=== PATIENT | male | born 1945 | race Caucasian/White ===

== ENCOUNTER 2019-11-28 21:58 | Emergency (ER) | payer MEDICARE ==
[~2019-11-28] VITALS: Ht 175.3 cm; Wt 88.5 kg
[~2019-11-28 21:58] MED LIST: ASPIR 8181 MG PO; LEVOTHYROXINE88 MCG PO; METFORMIN HCL500 MG PO; METOPROLOL TART25 MG PO; SIMVASTATIN40 MG PO
[2019-11-28 22:23] LABS: CLARITY,URINE TURBID (CLEAR); COLOR,URINE RED (YELLOW); LEUKOCYTE ESTERASE ,URINE 2+ (NEGATIVE); NITRITE,URINE NEGATIVE (NEGATIVE)
[2019-11-28 22:24] LABS: BACTERIA,URINE MODERATE /HPF; BILIRUBIN,URINE LARGE (NEGATIVE); KETONES,URINE 1+ (NEGATIVE); PROTEIN,URINE DIPSTICK 2+ (NEGATIVE); RBC,URINE 21-50 /HPF (0-5); URINE UROBILINOGEN 8 mg/dL (0.2 - 1)
[2019-11-28 23:00] LABS: BASOPHILS # (AUTO) 0.1 (0.0-0.1); BASOPHILS % 0.5 % (0.0-1.0); EOSINOPHILS # (AUTO) 0.4 (0.0-0.4); EOSINOPHILS % 3.4 % (0.0-6.0); HEMATOCRIT 40.6 % (38.2-49.6); HEMOGLOBIN 14.1 g/dL (14.0-18.0); LYMPHOCYTES # (AUTO) 1.3 (1.0-3.2); LYMPHOCYTES % 12.4 % (18.0-39.1); MEAN CORPUSCULAR HEMOGLOBIN 29.9 pg (28-32); MEAN CORPUSCULAR HGB CONC 34.7 g/dL (31-35); MEAN CORPUSCULAR VOLUME 86.2 fL (81-99); MONOCYTES # (AUTO) 0.9 (0.2-0.8); MONOCYTES % 8.2 % (4.4-11.3); NEUTROPHILS # (AUTO) 8.1 (2.1-6.9); NEUTROPHILS % 75.1 % (38.7-80.0); PLATELET COUNT 200 x10e3/uL (140-360); RED BLOOD COUNT 4.71 x10e6/uL (4.3-5.7); RED CELL DISTRIBUTION WIDTH 13.4 % (11.7-14.4)
[2019-11-28] MEDS ORDERED: CEFTRIAXONE SOD 1 GM/NS 50 ML 50 ML IV ONE (23:00)
[2019-11-28] MEDS ORDERED: CEFTRIAXONE SOD 1 GM VIAL ONE (23:12)
[2019-11-28 23:14] LABS: ALANINE AMINOTRANSFERASE 23 IU/L (0-55); ALBUMIN 4.2 g/dL (3.5-5.0); ALBUMIN/GLOBULIN RATIO 1.5 (0.8-2.0); ALKALINE PHOSPHATASE 69 IU/L (40-150); ANION GAP 13.7 mmol/L (8-16); BLOOD UREA NITROGEN 12 mg/dL (7-26); BUN/CREATININE RATIO 15 (6-25); CALCIUM 9.4 mg/dL (8.4-10.2); CARBON DIOXIDE 21 mmol/L (22-29); CHLORIDE 98 mmol/L (98-107); CREATININE, SERUM 0.81 mg/dL (0.72-1.25); EST GLOMERULAR FILTRATION RATE > 60 ML/MIN (60-); GLUCOSE 125 mg/dL (74-118); POTASSIUM 3.7 mmol/L (3.5-5.1); SODIUM 129 mmol/L (136-145)
[2019-11-28] MEDS ORDERED: SODIUM CHLORIDE 0.9% 1000ML 1,000 ML IV STA (23:39)
[2019-11-29] MEDS ORDERED: LIDOCAINE JELLY 2% 10ML URO-JET ONE (02:07)
--- NOTE | 2019-11-29 02:20 | NUR ---
DR HILLS PAGED DR MORGAN, AWAITING PAGE BACK.
--- NOTE | 2019-11-29 02:33 | NUR ---
350CC POST VOID RESIDUAL AFTER LOPEZ INSERTION. PATIENT TOLERATED PROCEDURE WELL. STERILE TECHNIQUE USED.
[2019-11-29] MEDS ORDERED: LIDOCAINE JELLY 2% 10ML URO-JET TOP ONE (02:45)
[2019-11-29 03:44] VITALS: BP 118/74
--- NOTE | 2019-11-29 05:39 | NUR ---
PATIENT DISCHARGED, LOPEZ BAG DRAINING TEA COLORED URINE, NO KINKS OR CLOTS NOTED TO TUBING. PATIENT HAS NO PATIENT EDUCATION QUESTIONS. INFORMED PATIENT IF LOPEZ BAG IS NOT DRAINING TO CALL DR JAY OFFICE OR COME BACK TO THIS EMERGENCY ROOM.
== END 2019-11-29 05:38 | disposition home or self-care (01) ==
LOC: ER 21:58
DX: R33.9 Retention of urine, unspecified (principal); N40.1 Benign prostatic hyperplasia with lower urinary tract symptoms; N30.01 Acute cystitis with hematuria
CPT/HCPCS: 36415; 51702; 80053; 81001; 84295; 85025; 87086; 99283; J0696; J7030; 51700

== ENCOUNTER 2019-12-24 08:18 | Emergency (ER) | payer MEDICARE ==
[~2019-12-24] VITALS: Ht 175.3 cm; Wt 88.5 kg
[2019-12-24 08:59] LABS: BASOPHILS % 0.5 % (0.0-1.0); EOSINOPHILS # (AUTO) 0.1 (0.0-0.4); EOSINOPHILS % 0.6 % (0.0-6.0); HEMATOCRIT 40.4 % (38.2-49.6); LYMPHOCYTES # (AUTO) 0.7 (1.0-3.2); MEAN CORPUSCULAR HEMOGLOBIN 29.9 pg (28-32); MEAN CORPUSCULAR HGB CONC 34.7 g/dL (31-35); MEAN CORPUSCULAR VOLUME 86.3 fL (81-99); MONOCYTES # (AUTO) 0.5 (0.2-0.8); MONOCYTES % 6.6 % (4.4-11.3); NEUTROPHILS # (AUTO) 6.5 (2.1-6.9); PLATELET COUNT 234 x10e3/uL (140-360); RED BLOOD COUNT 4.68 x10e6/uL (4.3-5.7)
[2019-12-24 09:04] LABS: COLOR,URINE RED (YELLOW)
[2019-12-24 09:05] LABS: CLARITY,URINE CLOUDY (CLEAR); LEUKOCYTE ESTERASE ,URINE LARGE (NEGATIVE); NITRITE,URINE POSITIVE (NEGATIVE); PROTEIN,URINE DIPSTICK >=300 (NEGATIVE)
[2019-12-24 09:06] LABS: BILIRUBIN,URINE LARGE (NEGATIVE); KETONES,URINE 1+ (NEGATIVE); URINE UROBILINOGEN 1 mg/dL (0.2 - 1)
[2019-12-24 09:14] LABS: RBC,URINE >50 /HPF (0-5); WBC,URINE (MAN) >50 /HPF (0-5)
[2019-12-24 09:15] LABS: INR 1.01; PROTHROMBIN TIME 13.9 seconds (11.9-14.5)
[2019-12-24 09:17] LABS: BACTERIA,URINE RARE /HPF; EPITHELIAL CELLS,URINE RARE /LPF
[2019-12-24 09:20] LABS: ANION GAP 17.5 mmol/L (8-16); BLOOD UREA NITROGEN 9 mg/dL (7-26); BUN/CREATININE RATIO 11 (6-25); CALCIUM 9.4 mg/dL (8.4-10.2); CARBON DIOXIDE 19 mmol/L (22-29); CHLORIDE 96 mmol/L (98-107); CREATININE, SERUM 0.82 mg/dL (0.72-1.25); EST GLOMERULAR FILTRATION RATE > 60 ML/MIN (60-); GLUCOSE 173 mg/dL (74-118); POTASSIUM 3.5 mmol/L (3.5-5.1); SODIUM 129 mmol/L (136-145)
[2019-12-24] MEDS ORDERED: SODIUM CHLORIDE 0.9% 250ML 250 ML ONE (10:05)
[2019-12-24] MEDS ORDERED: IOPAMIDOL 370 MG/ML 200 ML INFUS..BTL INJ ONE (10:05)
--- NOTE | 2019-12-24 11:53 | Diagnostic Imaging Report ---
EXAM: CT Abdomen and Pelvis without and WITH intravenous contrast - Hematuriaprotocol INDICATION: Losing blood COMPARISON: None. TECHNIQUE: Abdomen and pelvis were scanned utilizing a multidetector helical scanner from the lung base to the pubic symphysis with the patient in the prone position before and after administration of IV contrast. Coronal and sagittal reformations were obtained. Hematuria protocol was used. Scan was performed prior to contrast administration and during portal venous phase. Dose modulation, iterative reconstruction, and/or weight based adjustment of the mA/kV was utilized to reduce the radiation dose to as low as reasonably achievable. FINDINGS: LOWER THORAX: The lung bases demonstrate atelectasis. HEPATOBILIARY: No focal hepatic lesions. No biliary ductal dilatation. The gallbladder appears unremarkable. SPLEEN: No splenomegaly. PANCREAS: No focal masses or ductal dilatation. ADRENALS: No adrenal nodules. KIDNEYS/URETERS: The kidneys are normal in size. There is a nonobstructing 3 mm calculus in the lower pole of the left kidney. The ureters are normal in caliber and patent. PELVIC ORGANS/BLADDER: There is no bladder wall thickening. Both ureteral orifices are patent. There is no evidence of hydroureteronephrosis. The prostate is markedly enlarged and protrudes upon the bladder neck. The prostate measures approximately 7.1 x 5.2 x 7.1 cm. PERITONEUM / RETROPERITONEUM: No free air or fluid. LYMPH NODES: No lymphadenopathy. VESSELS: Unremarkable. GI TRACT: No distention or wall thickening. There is colonic diverticulosis without evidence of acute diverticulitis. BONES AND SOFT TISSUES: There are multilevel degenerative changes of the thoracolumbar spine. No acute osseous abnormalities are identified. IMPRESSION: 1. Markedly enlarged prostate which protrudes upon the bladder neck. The prostate measures approximate 7.1 x 5.2 x 7.1 cm. 2. No evidence of bladder wall thickening. 3. Nonobstructing 3 mm calculus in the lower pole of the left kidney. 4. Colonic diverticulosis without evidence of acute diverticulitis Signed by: Clifton Freedman MD on 12/24/2019 11:50 AM
--- NOTE | 2019-12-24 11:59 | NUR ---
ct just back for completion of read.
== END 2019-12-24 12:05 | disposition home or self-care (01) ==
LOC: ER 08:18
DX: R31.0 Gross hematuria (principal)
CPT/HCPCS: 36415; 74178; 80048; 81001; 85025; 85610; 99284; J7050; Q9967

== ENCOUNTER 2020-01-24 17:20 | Inpatient (IN) | payer MEDICARE ==
[~2020-01-24] VITALS: Ht 175.3 cm; Wt 85.8 kg
[~2020-01-24 17:20] MED LIST changes: -BACTRIM DS TAB1 EACH PO; -METOPROLOL TARTRATE 25 MG TAB PO SCH; -SIMVASTATIN 40 MG TAB PO SCH; -TYLENOL WITH C1 EACH PO
[2020-01-24 21:00] VITALS: BP 151/69
--- NOTE | 2020-01-24 21:06 | History and Physical ---
HISTORY OF PRESENT ILLNESS: The patient has been admitted for lower urological obstructive symptoms. See recent operative note reviewed on September 16, 2010, and more recently. History is included prior stricture. Prostatic hypertrophy. Elevated PSA in the distant past. Medical history includes hypertension and hyperlipoproteinemia. The patient was kindly seen by his urologist today and plans for further invasive assessment required. See also recommendations. MEDICATIONS: Prior to admission medications; lisinopril, Zocor. The patient is unsure of doses. We will recheck in the office. The patient also took Toprol 25 mg b.i.d., metformin 250 mg daily. PAST SURGICAL HISTORY: He denies other surgical history. ALLERGIES: DENIES KNOWN ALLERGIES. FAMILY HISTORY: Father with prostate cancer. Mother with cancer of the pancreas. The patient underwent a normal stress E[place] [address] Marinelli. REVIEW OF SYSTEMS: The patient denies headache or visual change. No upper or lower respiratory infectious symptoms. No known exposure to COVID virus. GI history review of systems is negative now. Lower obstructive symptoms. Denies claudication. No amaurosis. No angina. PHYSICAL EXAMINATION: GENERAL: The patient is alert and oriented. He is ambulating. He just voided. VITAL SIGNS: Pulse is 80 and regular, respiratory rate is 12. HEENT: Pupils round, reactive. No icterus or pallor. Throat clear. NECK: Supple. Carotids palpable. PULMONARY: Auscultation clear. CARDIAC: Sounds S1 and S2 within normal range. Soft. ABDOMEN: Soft. Bowel sounds normal. No flank or suprapubic tenderness at this time. EXTREMITIES: Free of edema, clubbing, or cyanosis. Pulses dampened and present. DTRs depressed symmetrically. Babinski is negative. Strength is good. CURRENT IMPRESSION: 1. Lower genitourinary chronic obstructive symptoms, recurrent. 2. Hypertension primary. 3. Hyperlipoproteinemia. 4. Prediabetes. PLANS: Are to follow the patient's blood pressure and blood sugar and control these. See also recommendations. Database here is pending. See also initial and followup orders. MD PREETI Zapata/MODL /[id number]
[2020-01-24] MEDS ORDERED: PHENAZOPYRIDINE HCL 100 MG TAB PO ONE (23:15)
[2020-01-24] MEDS ORDERED: MORPHINE SULFATE 2 MG/ML SYR 1ML IV PRN (23:30)
[2020-01-24] MEDS: SODIUM CHLORIDE 0.45% 1,000 ML IV SCH (23:51)
[2020-01-25] VITALS (11 sets, daily range): BP systolic 118–149; BP diastolic 57–67
[2020-01-25] MEDS: CEFTRIAXONE SOD 1 GM/NS 50 ML 50 ML IV SCH ×2 (00:54→22:32)
[2020-01-25 06:00] LABS: EOSINOPHILS # (AUTO) 0.1 (0.0-0.4); HEMATOCRIT 39.5 % (38.2-49.6); HEMOGLOBIN 13.2 g/dL (14.0-18.0); LYMPHOCYTES # (AUTO) 0.5 (1.0-3.2); MEAN CORPUSCULAR HEMOGLOBIN 29.3 pg (28-32); MEAN CORPUSCULAR HGB CONC 33.4 g/dL (31-35); MEAN CORPUSCULAR VOLUME 87.8 fL (81-99); MONOCYTES # (AUTO) 1.1 (0.2-0.8); PLATELET COUNT 177 x10e3/uL (140-360); RED CELL DISTRIBUTION WIDTH 13.5 % (11.7-14.4)
[2020-01-25] MEDS: LEVOTHYROXINE SODIUM 88 MCG TAB PO SCH (06:00)
[2020-01-25 06:47] LABS: ALANINE AMINOTRANSFERASE 19 IU/L (0-55); ALBUMIN 3.9 g/dL (3.5-5.0); ALBUMIN/GLOBULIN RATIO 1.3 (0.8-2.0); ALKALINE PHOSPHATASE 62 IU/L (40-150); ANION GAP 11.4 mmol/L (8-16); BLOOD UREA NITROGEN 11 mg/dL (7-26); BUN/CREATININE RATIO 12 (6-25); CALCIUM 9.4 mg/dL (8.4-10.2); CARBON DIOXIDE 26 mmol/L (22-29); CHLORIDE 101 mmol/L (98-107); CREATININE, SERUM 0.92 mg/dL (0.72-1.25); EST GLOMERULAR FILTRATION RATE > 60 ML/MIN (60-); GLUCOSE 125 mg/dL (74-118); POTASSIUM 4.4 mmol/L (3.5-5.1); SODIUM 134 mmol/L (136-145)
[2020-01-25 07:42] LABS: BAND NEUTROPHILS % (MANUAL) 1 %; LYMPHOCYTES % (MANUAL) 5 % (19-48); MONOCYTES % (MANUAL) 4 % (3.4-9.0); NEUTROPHILS % (MANUAL) 90 % (40-74); PLATELET ESTIMATE ADEQUATE; PLATELET MORPHOLOGY COMMENT NORMAL; RBC MORPHOLOGY COMMENT NORMAL
[2020-01-25] MEDS: LISINOPRIL 2.5 MG TAB PO SCH (09:00)
[2020-01-25] MEDS: METOPROLOL TARTRATE 25 MG TAB PO SCH ×2 (09:00→16:39)
[2020-01-25] MEDS ORDERED: B&O 60MG R/S 60 MG SUPP PR ONE (12:56)
[2020-01-25] MEDS ORDERED: IOPAMIDOL 300MG/ML 50ML INFUS..BTL IV ONE (12:56)
[2020-01-25] MEDS ORDERED: B&O 60MG R/S 60 MG SUPP PR PRN (14:30)
[2020-01-25] MEDS ORDERED: FENTANYL CITRATE/PF 100MCG/2 ML INJ ONE (16:16)
[2020-01-25] MEDS ORDERED: METFORMIN HCL 500 MG TAB PO SCH (16:30)
[2020-01-25] MEDS: ACETAMINOPHEN/CODEINE 300MG - 30MG TAB PO PRN ×2 (16:39→22:32)
[2020-01-25] MEDS: PHENAZOPYRIDINE HCL 100 MG TAB PO SCH (17:00)
[2020-01-25] MEDS ORDERED: PROPOFOL IV EMULSION 10 MG/ML 20 ML VIAL ONE (19:50)
[2020-01-25] MEDS ORDERED: LIDOCAINE HCL 2% LOCAL INJ 5 ML SDV VIAL INJ ONE (19:50)
[2020-01-25] MEDS ORDERED: SEVOFLURANE INHAL SOLN 250 ML PEN BTL ONE (19:50)
[2020-01-25] MEDS ORDERED: ONDANSETRON HCL INJ 2MG/ML 2ML 2 MG/ML VIAL ONE (19:50)
[2020-01-25] MEDS ORDERED: DEXAMETHASONE SOD PHOS INJ 4 MG/ML VIAL ONE (19:50)
[2020-01-25] MEDS ORDERED: SIMVASTATIN 20 MG TAB PO SCH (21:00)
[2020-01-25] MEDS: SODIUM CHLORIDE 0.45% 1,000 ML IV SCH (22:32)
[2020-01-26 01:37] LABS: CLARITY,URINE CLOUDY (CLEAR); COLOR,URINE AMBER (YELLOW); LEUKOCYTE ESTERASE ,URINE TRACE (NEGATIVE); NITRITE,URINE POSITIVE (NEGATIVE)
[2020-01-26 01:38] LABS: BACTERIA,URINE MANY /HPF; BILIRUBIN,URINE NEGATIVE (NEGATIVE); EPITHELIAL CELLS,URINE MANY /LPF; KETONES,URINE 1+ (NEGATIVE); PROTEIN,URINE DIPSTICK 2+ (NEGATIVE); RBC,URINE >50 /HPF (0-5); URINE UROBILINOGEN 0.2 mg/dL (0.2 - 1); WBC,URINE (MAN) >50 /HPF (0-5)
[2020-01-26 05:38] LABS: BASOPHILS % 0.1 % (0.0-1.0); EOSINOPHILS % 0.1 % (0.0-6.0); HEMATOCRIT 39.8 % (38.2-49.6); HEMOGLOBIN 13.3 g/dL (14.0-18.0); LYMPHOCYTES # (AUTO) 0.7 (1.0-3.2); LYMPHOCYTES % 6.4 % (18.0-39.1); MEAN CORPUSCULAR HEMOGLOBIN 29.6 pg (28-32); MEAN CORPUSCULAR HGB CONC 33.4 g/dL (31-35); MEAN CORPUSCULAR VOLUME 88.6 fL (81-99); MONOCYTES # (AUTO) 0.9 (0.2-0.8); MONOCYTES % 8.3 % (4.4-11.3); NEUTROPHILS # (AUTO) 9.3 (2.1-6.9); NEUTROPHILS % 84.7 % (38.7-80.0); PLATELET COUNT 167 x10e3/uL (140-360); RED BLOOD COUNT 4.49 x10e6/uL (4.3-5.7); RED CELL DISTRIBUTION WIDTH 13.2 % (11.7-14.4)
[2020-01-26 05:47] VITALS: BP 128/59
[2020-01-26 05:57] LABS: ANION GAP 13.2 mmol/L (8-16); BLOOD UREA NITROGEN 13 mg/dL (7-26); BUN/CREATININE RATIO 15 (6-25); CALCIUM 9.2 mg/dL (8.4-10.2); CARBON DIOXIDE 24 mmol/L (22-29); CHLORIDE 101 mmol/L (98-107); CREATININE, SERUM 0.86 mg/dL (0.72-1.25); EST GLOMERULAR FILTRATION RATE > 60 ML/MIN (60-); GLUCOSE 153 mg/dL (74-118); POTASSIUM 4.2 mmol/L (3.5-5.1); SODIUM 134 mmol/L (136-145)
[2020-01-26] MEDS: ACETAMINOPHEN/CODEINE 300MG - 30MG TAB PO PRN (06:00)
[2020-01-26] MEDS: LEVOTHYROXINE SODIUM 88 MCG TAB PO SCH (06:15)
[2020-01-26] MEDS: METOPROLOL TARTRATE 25 MG TAB PO SCH (08:21)
[2020-01-26 08:23] VITALS: BP 134/63
[2020-01-26 08:28] VITALS: BP 134/63
[2020-01-26] MEDS: LISINOPRIL 2.5 MG TAB PO SCH (08:49)
[2020-01-26] MEDS: PHENAZOPYRIDINE HCL 100 MG TAB PO SCH (08:49)
[2020-01-26] MEDS ORDERED: TYLENOL WITH C1 EACH PO (10:12)
[2020-01-26] MEDS ORDERED: BACTRIM DS TAB1 EACH PO (10:12)
--- NOTE | 2020-01-26 21:23 | Operative Report ---
DATE OF PROCEDURE: 01/25/2020 SURGEON: Adrian Veliz MD PREOPERATIVE DIAGNOSIS: 1. Severe distal urethral stricture. 2. Hematuria. 3. Urinary tract infections. POSTOPERATIVE DIAGNOSES: 1. Severe distal urethral stricture. 2. Hematuria. 3. Urinary tract infections. OPERATIONS PERFORMED: 1. Cystourethroscopy with calibration and dilation of severe fossa navicularis and distal urethral stricture (separate procedure performed for the diagnosis of stricture). 2. Cystourethroscopy with bilateral ureteral catheterization and retrograde ureteropyelography (separate procedure performed for the urinary tract infections and hematuria). 3. Interpretation of retrograde ureteropyelography. 4. Supervision of fluoroscopy, no radiologist presents. 5. Interpretation of cystography no radiologist present. ANESTHESIA: General. COMPLICATIONS: None. CLINICAL SUMMARY: Wes Giang is a 74-year-old man with a previous history of photoselective vaporization of the prostate performed in 2009. The patient failed to follow up for some time and returned recently with a problem with hematuria and was documented as having urinary tract infection as well. The patient was evaluated in the office. Cystoscopy in the office was attempted with the patient has severe stricture. We attempted to dilate the stricture in the office and this was not possible due to both bleeding as well as pain. The patient was sent to the emergency room for immediate admission and is brought to the operating room for the above procedures. He is aware of the risks of bleeding, infection, injury to adjacent structures, need for additional procedures, and elected to proceed. OPERATIVE PROCEDURE IN DETAIL: Informed consent was verified. Wes Giang was properly identified, taken to the operating room, placed on the cystoscopy table in supine position, and anesthesia was uneventfully begun. The patient was then carefully and gently repositioned in the dorsal lithotomy position with all pressure points well padded. His genitalia were prepared and draped in usual sterile fashion. A 22.5-Italian cystoscope sheath with visual obturator in place was atraumatically inserted into the patient's urethral meatus and just proximal to urethral meatus, there was a severe stricture. Utilization of a guidewire helped ensure appropriate channel. We placed the guidewire into the patient's urethra and fluoroscopically followed it into the patient's bladder. We then utilized female sounds to progressively dilate from 10-Italian all the way to 28-Italian. This resulted in some bleeding as expected. We then were easily able to place the 22.5-Italian cystoscope sheath with the visual obturator in place down the urethra, which was significant for bands that were wide caliber throughout the entire length of the urethra. We went through the normal sphincteric region into the patient's prostate bed, where there was obvious signs of prior transurethral resection; however, there was significant amount of regrowth with visual obstruction most pronounced at the apical region. There was also additional regrowth that was blanched with most likely phenazopyridine and this regrowth was very prominent at the right lateral proximal prostate. We entered into the patient's bladder, where panendoscopy revealed signs of chronic cystitis. There were no tumors. There were no suspicious lesions. A ureteral catheter was used to cannulate each ureter and retrograde ureteropyelograms were performed. Interpretation of retrograde ureteropyelography contrast was instilled in retrograde fashion bilaterally. There were no tumors, no stones, no diverticula. Unobstructed drainage was observed bilaterally fluoroscopically. There was severe J-hooking noted, but no hydronephrosis. The cystoscope was withdrawn. Blanton catheter was placed over the guidewire and guided into the patient's bladder. It was irrigated to and fro to ensure it worked properly. Cystography was then performed. Interpretation of cystography contrast was instilled in a retrograde fashion via the Blanton catheter. The bladder wall did exhibit some trabeculations. Blanton catheter balloon was in an excellent position within the bladder and it was difficult to machine etcher the vesicoureteral reflux in light of the prior retrograde pyelograms. There were filling defects at the base of the bladder, that were consistent with lobes of the prostate growing into the bladder. We could tell there was a transurethral resection defect, but we can also tell that there were growth into this defect consistent with the regrowth of BPH. A belladonna and opium suppository were placed revealing a larger than 50 g prostate, that is smooth and non-fluctuant without any nodules. The patient was uneventfully reversed from anesthesia and taken to recovery room in stable condition. There were no complications to the procedure. He tolerated the procedure well. Explicit postop instructions were given to the patient's . Plans will be to follow the patient up in 2 to 3 weeks to remove his Blanton catheter in the office. Further plans will be made for transurethral resection of the prostate. MD KANCHAN Stevenson/STEPHANY /[id number] cc: Avery Servin MD
--- NOTE | 2020-01-28 19:39 | Discharge Summary ---
HOSPITAL COURSE: The patient was seen as an outpatient by his urologist. He had severe symptoms of lower obstruction. He was unable to be treated with cystoscopy in the office. He was unable to be dilated in the office. He had pain and bleeding in the office. Therefore, he required inpatient assessment and treatment, which was undertaken. Database was obtained and monitored. The patient's hypertension and prediabetes were medically managed. See also operative note including cystourethroscopy, dilatation of severe fossa navicularis and distal urethral strictures, bilateral ureteral catheterization and retrograde ureteropyelography. Postoperative course was satisfactory. The patient continued with Blanton. No hematuria. On January 24, white count was elevated at 14,777. This fell to 10,960 on January 25. The patient was treated empirically with broad-spectrum cephalosporins while here. Platelet count normal. Hemoglobin 13.2 on admission, 13.3 on January 25. Urinalysis with hematuria as well as pyuria. Serum chemistries monitored and essentially normal. Peak blood sugar 209. Blood sugars otherwise were 92, 118, and 103. Urine culture was obtained on a collection January 24, and final report is no growth. See also history and physical. See also reported retrograde pyelogram when available. The patient was instructed in use of Blanton and regarding the need for close followup with his urologist. He also discharged medicine reconciliation list. He will continue transiently empirically sulfa antibiotics. He will continue antihypertensives and low-dose metformin. FINAL IMPRESSION: 1. Urethral strictures, treated as above. 2. Primary hypertension. 3. Hyperlipoproteinemia. 4. Prediabetes. MD PREETI Zapata/MODL /[id number]
== END 2020-01-26 11:10 | disposition home or self-care (01) | DRG 697 ==
LOC: MED/SURG 17:20
PROVIDERS: ADMIT Internal Medicine; ATTEND Internal Medicine
PROC: BT141ZZ Fluoroscopy of Kidneys, Ureters and Bladder using Low Osmolar Contrast (ICD-10-PCS; 2020-01-25)
PROC: 0T788ZZ Dilation of Bilateral Ureters, Via Natural or Artificial Opening Endoscopic (ICD-10-PCS; 2020-01-25)
PROC: 0T7D8ZZ Dilation of Urethra, Via Natural or Artificial Opening Endoscopic (ICD-10-PCS; principal; 2020-01-25 14:00)
DX: N35.919 Unspecified urethral stricture, male, unspecified site (principal); I10 Essential (primary) hypertension; R73.03 Prediabetes; E78.5 Hyperlipidemia, unspecified; E88.09 Other disorders of plasma-protein metabolism, not elsewhere classified; R31.9 Hematuria, unspecified
CPT/HCPCS: 36415; 74420; 80048; 80053; 81001; 82948; 83880; 84443; 85007; 85025; 85027; 85610; 85730; 87086; 96361; C1769; J0696; J1100; J2001; J2270; J2405; J3010

== ENCOUNTER → 2020-01-24 | Emergency (ER) | payer MEDICARE ==
[~2020-01-24] VITALS: Ht 175.3 cm; Wt 88.5 kg
[~2020-01-24] MED LIST changes: +BACTRIM DS TAB1 EACH PO; +METOPROLOL TARTRATE 25 MG TAB PO SCH; +SIMVASTATIN 40 MG TAB PO SCH; +TYLENOL WITH C1 EACH PO
--- OUTSIDE RECORDS SUMMARY | 2020-01-24 17:23 | XMS REPORT ---
[facility] Address Unknown Phone Unavailable Care Team Providers Care Field Operator Name Role Phone EDDIE HAMPTON, BECKI PP ELIEL RODRIGUEZ Unavailable Unavailable Payers Payer Name Policy Type Policy Number Effective Date Expiration Date [employer] [id number] [employer] [id number] Problems This patient has no known problems. Allergies, Adverse Reactions, Alerts This patient has no known allergies or adverse reactions. Medications Ordered Medication Name Filled Medication Name Start Date Stop Date Current Medication? Ordering Clinician Indication Dosage Frequency Signature (SIG) Comments Components Aspirin (Aspir 81) 81 Mg Tablet. Aspirin (Aspir 81) 81 Mg Tablet. Yes 81 Daily Levothyroxine Sodium 88 Mcg Tablet Levothyroxine Sodium 88 Mcg Tablet Yes 88 Daily Metformin Hcl 500 Mg Tablet Metformin Hcl 500 Mg Tablet Yes 250 Daily Metoprolol Tartrate 25 Mg Tablet Metoprolol Tartrate 25 Mg Tablet Yes 25 Twice A Day Simvastatin 40 Mg Tablet Simvastatin 40 Mg Tablet Yes 40 Today At 9:00PM Procedures and Interventions Procedure Date / Time Performed Performing Clinician Computed tomography of abdomen and pelvis without then with contrast 2019-12-24 00:00:00 ELIEL RODRIGUEZ Encounters Start Date/Time End Date/Time Encounter Type Admission Type Attending Clinicians Care Facility Care Department Encounter ID 2019-12-24 08:18:00 2019-12-24 12:05:00 Departed Emergency Room 1 ELIEL RODRIGUEZ [facility] [id number] 2019-11-28 21:58:00 2019-11-29 05:38:00 Departed Emergency Room [facility] [id number] Results Test Description Test Time Test Comments Text Results Atomic Results Result Comments CT ABDOMEN/PELVIS WOW 2019-12-24 11:27:00 [place] [address] Patient Name: ANNA JACKSON MR #: [id number] : 1945 Age/Sex: 74/M Req #: [id number] Adm Physician: Ordered by: ELIEL RODRIGUEZ DO Report #: [id number] Location: ER Room/Bed: Procedure: [id number] CT/CT ABDOMEN/PELVIS WOW Exam Date: 12/24/19 Exam Time: 999 REPORT STATUS: Signed EXAM: CT Abdomen and Pelvis without and WITH intraveno us contrast - Hematuriaprotocol INDICATION: Losing blood COMPARISON: None. TECHNIQUE: Abdomen and pelvis were scanned utilizing a multidetector helical scanner from the lung base to the pubic symphysis with the patient in the prone position before and after administration of IV contrast. Coronal and sagittal reformations were obtained. Hematuria protocol was used. Scan was performed prior to contrast administration and during portal venous phase. Dose modulation, iterative reconstruction, and/or weight based adjustment of the mA/kV was utilized to reduce the radiation dose to as low as reasonably achievable. FINDINGS: LOWER THORAX: The lung bases demonstrate atelectasis. HEPATOBILIARY: No focal hepatic lesions. No biliary ductal dilatation. The gallbladder appears unremarkable. SPLEEN: No splenomegaly. PANCREAS: No focal masses or ductal dilatation. ADRENALS: No adrenal nodules. KIDNEYS/URETERS: The kidneys are normal in size. There is a nonobstructing 3 mm calculus in the lower pole of the left kidney. The ureters are normal in caliber and patent. PELVIC ORGANS/BLADDER: There is no bladder wall thickening. Both ureteral orifices are patent. There is no evidence of hydroureteronephrosis. The prostate is markedly enlarged and protrudes upon the bladder neck. The prostate measures approximately 7.1 x 5.2 x 7.1 cm. PERITONEUM / RETROPERITONEUM: No free air or fluid. LYMPH NODES: No lymphadenopathy. VESSELS: Unremarkable. GI TRACT: No distention or wall thickening. There is colonic diverticulosis without evidence of acute diverticulitis. BONES AND SOFT TISSUES: There are multilevel degenerative changes of the thoracolumbar spine. No acute osseous abnormalities are identified. IMPRESSION: 1. Markedly enlarged prostate which protrudes upon the bladder neck. The prostate measures approximate 7.1 x 5.2 x 7.1 cm. 2. No evidence of bladder wall thickening. 3. Nonobstructing 3 mm calculus in the lower pole of the left kidney. 4. Colonic diverticulosis without evidence of acute diverticulitis Signed by: Clifton Tucker MD on 12/24/2019 11:50 AM Dictated By: CLIFTON TUCKER MD 1150 Transcribed By: JUSTYN on 12/24/19 1150 COPY TO: ELIEL RODRIGUEZ DO Sodium Level 2019-12-24 09:36:00 Sodium Level (test erfl=1002-5) 129 136-145 Potassium Esrjw0420-94-12 09:36:00* Test Item Value Reference Range Comments Potassium Level (test dbsj=5301-3) 3.5 3.5-5.1 Chloride Dvxxf5376-71-57 09:36:00* Test Item Value Reference Range Comments Chloride Level (test ngpy=3799-2) 96 98-107 Carbon Dioxide Cmqzk4566-29-61 09:36:00* Test Item Value Reference Range Comments Carbon Dioxide Level (test ffva=5455-1) 19 22-29 Anion Qnh6694-09-70 09:36:00* Test Item Value Reference Range Comments Anion Gap (test epia=52025-6) 17.5 8-16 Blood Urea Zfzywdet4089-87-72 09:36:00* Test Item Value Reference Range Comments Blood Urea Nitrogen (test wybn=7725-5) 9 7-26 Ydhoqytwvw6536-22-40 09:36:00* Test Item Value Reference Range Comments Creatinine (test ayzp=1775-3) 0.82 0.72-1.25 BUN/Creatinine Jzrmp2938-56-65 09:36:00* Test Item Value Reference Range Comments BUN/Creatinine Ratio (test ysma=6598-8) 11 6-25 Estimat Glomerular Filtration Grtn9411-53-51 09:36:00* Test Item Value Reference Range Comments Estimat Glomerular Filtration Rate (test nnbs=019748159) > 60 >60 Ranges were taken from the National Kidney Disease Education Program and the [facility] Foundation literature.Reference ranges:60 or greater: Igxydo22-38 ( for 3 consecutive months): Chronic kidney disease 15 or less: Kidney failure Glucose Vngkk4927-21-80 09:36:00* Test Item Value Reference Range Comments Glucose Level (test fzao=BHR8343) 173 74-118 Calcium Fkwdg5052-52-87 09:36:00* Test Item Value Reference Range Comments Calcium Level (test gcak=73282-1) 9.4 8.4-10.2 Prothrombin Zvga0667-56-02 09:18:00* Test Item Value Reference Range Comments Prothrombin Time (test afho=7212-3) 13.9 11.9-14.5 Prothromb Time International Saeaq2913-91-65 09:18:00* Test Item Value Reference Range Comments Prothromb Time International Ratio (test pbzh=4973-6) 1.01 Oral Anticoagulant Therapy INR Values:1. Low Intensity Therapy 1.5 - 2.02 . Moderate Intensity Therapy 2.0 - 3.03. High Intensity Therapy(1) 2.5 - 3. 54. High Intensity Therapy(2) 3.0 - 4.05. Panic Value INR > 5.0 Urine VYM7750-79-29 09:17:00* Test Item Value Reference Range Comments Urine WBC (test sjwl=9800-6) >50 0-5 Urine WTJ0454-26-52 09:17:00* Test Item Value Reference Range Comments Urine RBC (test wlta=59030-5) >50 0-5 Urine Ycamtwwd9101-45-17 09:17:00* Test Item Value Reference Range Comments Urine Bacteria (test ytzk=05405-5) RARE NONE URINE TOO BLOODY/CLOUDY TO OBSERVE BACTERIAL PRESENCEUrine Epithelial Cells 2019-12-24 09:17:00* Test Item Value Reference Range Comments Urine Epithelial Cells (test pcfv=83125-0) RARE NONE Urine Xikqa7512-33-14 09:07:00* Test Item Value Reference Range Comments Urine Color (test tmca=2213-8) RED YELLOW Urine Merumtm6109-52-75 09:07:00* Test Item Value Reference Range Comments Urine Clarity (test jqot=96986-6) CLOUDY CLEAR Urine Specific Gihkahl7252-38-09 09:07:00* Test Item Value Reference Range Comments Urine Specific [place] (test uyaw=0984-0) 1.015 1.010-1.025 Urine wA9041-29-39 09:07:00* Test Item Value Reference Range Comments Urine pH (test nsid=55146-6) 5.5 5-7 Urine Leukocyte Abwjszsb9022-22-89 09:07:00* Test Item Value Reference Range Comments Urine Leukocyte Esterase (test kysf=8927-9) LARGE NEGATIVE Urine Ebwjmmp2860-90-50 09:07:00* Test Item Value Reference Range Comments Urine Nitrite (test zpjt=46368-5) POSITIVE NEGATIVE Urine Rtnxqph6209-46-15 09:07:00* Test Item Value Reference Range Comments Urine Protein (test wsne=1246-8) >=300 NEGATIVE Urine Glucose (UA)2019-12-24 09:07:00* Test Item Value Reference Range Comments Urine Glucose (UA) (test jwud=8795-7) NEGATIVE NEGATIVE Urine Fdidzru3265-60-17 09:07:00* Test Item Value Reference Range Comments Urine Ketones (test nkuo=79292-0) 1+ NEGATIVE Urine Uujhxmenvhee9126-82-66 09:07:00* Test Item Value Reference Range Comments Urine Urobilinogen (test mzbl=77444-8) 1 0.2-1 Urine Ofpwkasxq6330-88-55 09:07:00* Test Item Value Reference Range Comments Urine Bilirubin (test qrbh=2703-8) LARGE NEGATIVE Urine Mudsj7893-48-34 09:07:00* Test Item Value Reference Range Comments Urine Blood (test xpua=11920-6) 3+ NEGATIVE White Blood Lmeop9751-75-34 09:03:00* Test Item Value Reference Range Comments White Blood Count (test yoss=1585-6) 7.85 4.8-10.8 Red Blood Pmhpi4523-20-66 09:03:00* Test Item Value Reference Range Comments Red Blood Count (test rvbn=229-3) 4.68 4.3-5.7 Kicpfdfgye5231-09-75 09:03:00* Test Item Value Reference Range Comments Hemoglobin (test bnif=45277-5) 14.0 14.0-18.0 Vjhchrdtmr6910-28-16 09:03:00* Test Item Value Reference Range Comments Hematocrit (test eeps=1815-6) 40.4 38.2-49.6 Mean Corpuscular Jbkxnp7348-02-59 09:03:00* Test Item Value Reference Range Comments Mean Corpuscular Volume (test gajo=088-9) 86.3 81-99 Mean Corpuscular Esipnvbrsr4742-68-01 09:03:00* Test Item Value Reference Range Comments Mean Corpuscular Hemoglobin (test wcrh=775-0) 29.9 28-32 Mean Corpuscular Hemoglobin Wlwogac1445-87-72 09:03:00* Test Item Value Reference Range Comments Mean Corpuscular Hemoglobin Concent (test uydb=600-2) 34.7 31-35 Red Cell Distribution Akpaj7626-99-42 09:03:00* Test Item Value Reference Range Comments Red Cell Distribution Width (test phec=27626-5) 14.0 11.7-14.4 Platelet Ozkbn4061-83-64 09:03:00* Test Item Value Reference Range Comments Platelet Count (test tlmk=662-5) 234 140-360 Neutrophils (%) (Auto)2019-12-24 09:03:00* Test Item Value Reference Range Comments Neutrophils (%) (Auto) (test fjdg=81204-1) 83.0 38.7-80.0 Lymphocytes (%) (Auto)2019-12-24 09:03:00* Test Item Value Reference Range Comments Lymphocytes (%) (Auto) (test yzpi=868-9) 9.0 18.0-39.1 Monocytes (%) (Auto)2019-12-24 09:03:00* Test Item Value Reference Range Comments Monocytes (%) (Auto) (test qdwz=0616-9) 6.6 4.4-11.3 Eosinophils (%) (Auto)2019-12-24 09:03:00* Test Item Value Reference Range Comments Eosinophils (%) (Auto) (test rizt=365-9) 0.6 0.0-6.0 Basophils (%) (Auto)2019-12-24 09:03:00* Test Item Value Reference Range Comments Basophils (%) (Auto) (test sbxf=184-8) 0.5 0.0-1.0 IM GRANULOCYTES %2019-12-24 09:03:00* Test Item Value Reference Range Comments IM GRANULOCYTES % (test code=IM GRANULOCYTES %) 0.3 0.0-1.0 Neutrophils # (Auto)2019-12-24 09:03:00* Test Item Value Reference Range Comments Neutrophils # (Auto) (test jffp=906-5) 6.5 2.1-6.9 Lymphocytes # (Auto)2019-12-24 09:03:00* Test Item Value Reference Range Comments Lymphocytes # (Auto) (test ejci=59722-0) 0.7 1.0-3.2 Monocytes # (Auto)2019-12-24 09:03:00* Test Item Value Reference Range Comments Monocytes # (Auto) (test nrxs=459-7) 0.5 0.2-0.8 Eosinophils # (Auto)2019-12-24 09:03:00* Test Item Value Reference Range Comments Eosinophils # (Auto) (test rgxi=569-0) 0.1 0.0-0.4 Basophils # (Auto)2019-12-24 09:03:00* Test Item Value Reference Range Comments Basophils # (Auto) (test nlfa=984-8) 0.0 0.0-0.1 Absolute Immature Granulocyte (cebm7608-72-59 09:03:00* Test Item Value Reference Range Comments Absolute Immature Granulocyte (auto (test code=Absolute Immature Granulocyte (auto) 0.02 0-0.1 Total Guhndcftm5040-70-30 23:18:00* Test Item Value Reference Range Comments Total Bilirubin (test jgog=6017-1) 0.7 0.2-1.2 Aspartate Amino Transf (AST/SGOT)2019-11-28 23:18:00* Test Item Value Reference Range Comments Aspartate Amino Transf (AST/SGOT) (test code=Aspartate Amino Transf (AST/SGOT)) 17 5-34 Alanine Aminotransferase (ALT/SGPT)2019-11-28 23:18:00* Test Item Value Reference Range Comments Alanine Aminotransferase (ALT/SGPT) (test dtlf=1693-6) 23 0-55 Total Tpseqif6267-12-76 23:18:00* Test Item Value Reference Range Comments Total Protein (test unge=1544-3) 7.0 6.5-8.1 Qulauum3229-39-45 23:18:00* Test Item Value Reference Range Comments Albumin (test sxog=3298-1) 4.2 3.5-5.0 Tiakpwam5344-09-71 23:18:00* Test Item Value Reference Range Comments Globulin (test jdxi=29062-1) 2.8 2.3-3.5 Albumin/Globulin Chtjg2427-91-61 23:18:00* Test Item Value Reference Range Comments Albumin/Globulin Ratio (test huru=7429-3) 1.5 0.8-2.0 Alkaline Pypmicpyjjh6908-36-39 23:18:00* Test Item Value Reference Range Comments Alkaline Phosphatase (test yzqy=9239-8) 69 40-150
--- NOTE | 2020-01-24 19:01 | NUR ---
Updated patient on plan, Drilling And Production Superintendent to advise when she received orders from Dr. Veliz for admission to floor.
[2020-01-24 21:40] LABS: BASOPHILS % 0.2 % (0.0-1.0); EOSINOPHILS # (AUTO) 0.1 (0.0-0.4); EOSINOPHILS % 0.8 % (0.0-6.0); HEMATOCRIT 42.7 % (38.2-49.6); HEMOGLOBIN 14.6 g/dL (14.0-18.0); LYMPHOCYTES # (AUTO) 0.9 (1.0-3.2); LYMPHOCYTES % 7.2 % (18.0-39.1); MEAN CORPUSCULAR HEMOGLOBIN 29.7 pg (28-32); MEAN CORPUSCULAR HGB CONC 34.2 g/dL (31-35); MEAN CORPUSCULAR VOLUME 86.8 fL (81-99); NEUTROPHILS # (AUTO) 10.4 (2.1-6.9); NEUTROPHILS % 83.4 % (38.7-80.0); PLATELET COUNT 203 x10e3/uL (140-360); RED BLOOD COUNT 4.92 x10e6/uL (4.3-5.7); RED CELL DISTRIBUTION WIDTH 13.5 % (11.7-14.4)
[2020-01-24 21:51] LABS: ANION GAP 12.8 mmol/L (8-16); BLOOD UREA NITROGEN 11 mg/dL (7-26); BUN/CREATININE RATIO 12 (6-25); CALCIUM 9.7 mg/dL (8.4-10.2); CARBON DIOXIDE 24 mmol/L (22-29); CHLORIDE 99 mmol/L (98-107); CREATININE, SERUM 0.92 mg/dL (0.72-1.25); EST GLOMERULAR FILTRATION RATE > 60 ML/MIN (60-); GLUCOSE 119 mg/dL (74-118); POTASSIUM 3.8 mmol/L (3.5-5.1); SODIUM 132 mmol/L (136-145)
[2020-01-24 21:58] LABS: INR 1.01; PROTHROMBIN TIME 13.9 seconds (11.9-14.5)
[2020-01-24 21:59] LABS: PARTIAL THROMBOPLASTIN TIME 40.5 seconds (23.8-35.5)
--- NOTE | 2020-01-25 00:31 | Diagnostic Imaging Report ---
EXAMINATION: CHEST 2 VIEWS INDICATION: Pre-op COMPARISON: None FINDINGS: TUBES and LINES: None. LUNGS: Lungs are well inflated. Mild patchy bibasilar opacities, likely atelectasis. There is no evidence of lobar pneumonia or pulmonary edema. PLEURA: No pleural effusion or pneumothorax. HEART AND MEDIASTINUM: The cardiomediastinal silhouette is unremarkable. There are atherosclerotic calcifications within the aorta. BONES AND SOFT TISSUES: No acute osseous lesion. Soft tissues are unremarkable. UPPER ABDOMEN: No free air under the diaphragm. IMPRESSION: No acute thoracic abnormality. Signed by: Dr. Thom Ramirez MD on 01/25/2020 12:28 AM
[2020-01-25 13:07] LABS: CLARITY,URINE HAZY (CLEAR); COLOR,URINE YELLOW (YELLOW)
[2020-01-25 13:08] LABS: KETONES,URINE 2+ (NEGATIVE); LEUKOCYTE ESTERASE ,URINE SMALL (NEGATIVE); NITRITE,URINE POSITIVE (NEGATIVE); PROTEIN,URINE DIPSTICK 2+ (NEGATIVE); URINE UROBILINOGEN 1 mg/dL (0.2 - 1)
[2020-01-25 13:09] LABS: BILIRUBIN,URINE SMALL (NEGATIVE)
[2020-01-25 13:25] LABS: WBC,URINE (MAN) >50 /HPF (0-5)
[2020-01-25 13:26] LABS: BACTERIA,URINE FEW /HPF; EPITHELIAL CELLS,URINE FEW /LPF; RBC,URINE 0-5 /HPF (0-5)
--- OUTSIDE RECORDS SUMMARY | 2020-02-13 12:29 | XMS REPORT ---
Author Author [facility] t Organization [facility] Address [address] [place] [address] Phone Unavailable Care Team Providers Care Rock Duster Name Role Phone EDDIE HAMPTON, BECKI PCP DARYN HILLS Attphys Unavailable RODRIGUEZ, ELIEL Attphys Unavailable Payers Payer Name Policy Type Policy Number Effective Date Expiration Date Shaneka townsend [employer] [id number] [facility] [employer] [id number] [facility] Problems This patient has no known problems. Allergies, Adverse Reactions, Alerts This patient has no known allergies or adverse reactions. Medications Ordered Medication Name Filled Medication Name Start Date Stop Da te Current Medication? Ordering Clinician Indication Dosage Frequency Signature (SIG) Comments Components Source Aspirin (Aspir 81) 81 Mg Tablet. Aspirin (Aspir 81) 81 Mg Tablet. Yes 81 Daily [facility] Levothyroxine Sodium 88 Mcg Tablet Levothyroxine Sodium 88 Mcg Tablet Yes 88 Daily [facility] Metformin Hcl 500 Mg Tablet Metformin Hcl 500 Mg Tablet Yes 250 Daily [facility] Metoprolol Tartrate 25 Mg Tablet Metoprolol Tartrate 25 Mg Tablet Yes 25 Twice A Day [facility] Simvastatin 40 Mg Tablet Simvastatin 40 Mg Tablet Yes 40 Today At 9:00PM [facility] Procedures Procedure Date / Time Performed Performing Clinician Sour e Computed tomography of abdomen and pelvis without then with contrast 2019-12-24 00:00:00 ELIEL RODRIGUEZ [facility] Encounters Start Date/Time End Date/Time En[facility] ID Source 2019-12-24 08:18:00 2019-12-24 12:05:00 Departed Emergency Room 1 ELIEL RODRIGUEZ [facility] [id number] [facility] 2019-11-28 21:58:00 2019-11-29 05:38:00 Departed Emergency Room [facility] [id number] [facility] Results Test Description Test Time Test Comments Results Result Comments Source CHEST 2 VIEWS 2020-01-25 00:24:00 [place] [address] Patient Name: ANNA JACKSON MR #: [id number] : 1945 Age/Sex: 74/M Req #: [id number] Adm Physician: Ordered by: KISHA SANCHEZ MD Report #: [id number] Location: ER Room/Bed: Procedure: [id number] DX/CHEST 2 VIEWS Exam Date: 01/25/20 Exam Time: 0500 REPORT STATUS: Signed EXAMINATION: CHEST 2 VIEWS INDICATION: Pre-op COMPARISON: None FINDINGS: TUBES and LINES: None. LUNGS: Lungs are well inflated. Mild patchy bibasilar opacities, likely atelectasis. There is no evidence of lobar pneumonia or pulmonary edema. PLEURA: No pleural effusion or pneumothorax. HEART AND MEDIASTINUM: The cardiomediastinal silhouette is unremarkable. There are atherosclerotic calcifications within the aorta. BONES AND SOFT TISSUES: No acute osseous lesion. Soft tissues are unremarkable. UPPER ABDOMEN: No free air under the diaphragm. IMPRESSION: No acute thoracic abnormality. Signed by: Dr. Sachin Lemus MD on 01/25/2020 12:28 AM Dictated By: SACHIN LEMUS MD Transcribed By: JUSTYN on 01/25/2027 COPY TO: KISHA SANCHEZ MD CT ABDOMEN/PELVIS WOW 2019-12-24 11:27:00 [place] [address] Patient Name: ANNA JACKSON MR #: [id number] : 1945 Age/Sex: 74/M Req #: [id number] Adm Physician: Ordered by: ELIEL RODRIGUEZ DO Report #: [id number] Location: ER Room/Bed: Procedure: [id number] CT/CT ABDOMEN/PELVIS WOW Exam Date: 12/24/19 Exam Time: 1000 REPORT STATUS: Signed EXAM: CT Abdomen and Pelvis without and WITH intravenous contrast - Hematuriaprotocol INDICATION: Losing blood COMPARISON: [...] the mA/kV was utilized to reduce the ra diation dose to as low as reasonably achievable. [...] ELIEL RODRIGUEZ DO Sodium Level 2019-12-24 09:36:00 Test Item Sodium Level (test code = 2951-2) 129 136-145 [facility] Xzntk9264-18-16 09:36:00* Test Item Value Reference Range Interpretation Comments Potassium Level (test code = 2823-3) 3.5 3.5-5.1 [facility] CenterChloride Dfojg9205-77-57 09:36:00* Test Item Value Reference Range Interpretation Comments Chloride Level (test code = 2075-0) 96 98-107 [facility] CenterCarbon Dioxide Gqqzy4193-27-51 09:36:00* Test Item Value Reference Range Interpretation Comments Carbon Dioxide Level (test code = 2028-9) 19 22-29 [facility] CenterAnion Zba4369-67-09 09:36:00* Test Item Value Reference Range Interpretation Comments Anion Gap (test code = 36761-0) 17.5 8-16 [facility] CenterBlood Urea Gzdkzspe5633-95-02 09:36:00* Test Item Value Reference Range Interpretation Comments Blood Urea Nitrogen (test code = 3094-0) 9 7-26 [facility] CenterCreatinine2020-03-23 09:36:00* Test Item Value Reference Range Interpretation Comments Creatinine (test code = 2160-0) 0.82 0.72-1.25 [facility] CenterBUN/Creatinine Gxgcc8992-97-84 09:36:00* Test Item Value Reference Range Interpretation Comments BUN/Creatinine Ratio (test code = 3097-3) 11 6-25 [facility] CenterEstimat Glomerular Filtration Rate 2019-12-24 09:36:00* Test Item Value Reference Range Interpretation Comments Estimat Glomerular Filtration Rate (test code = 658287159) > 60 >60 Ranges were taken from the National Kidney Disease Education Program and the [facility] literature.Reference ranges:60 or greater: Hwhxei05-34 ( for 3 consecutive months): Chronic kidney disease 15 or less: Kidney failureCovenant Medical CenterGlucose Dyyim5995-14-70 09:36:00* Test Item Value Reference Range Interpretation Comments Glucose Level (test code = LUY6096) 173 74-118 [facility] CenterCalcium Ofzwk5165-22-34 09:36:00* Test Item Value Reference Range Interpretation Comments Calcium Level (test code = 60869-2) 9.4 8.4-10.2 [facility] CenterProthrombin Wrww1512-69-14 09:18:00* Test Item Value Reference Range Interpretation Comments Prothrombin Time (test code = 5902-2) 13.9 11.9-14.5 [facility] CenterProthromb Time International Ratio 2019-12-24 09:18:00* Test Item Value Reference Range Interpretation Comments Prothromb Time International Ratio (test code = 6301-6) 1.01 Oral Anticoagulant Therapy INR Values:1. Low Intensity Therapy 1.5 - 2.02 . Moderate Intensity Therapy 2.0 - 3.03. High Intensity Therapy(1) 2.5 - 3. 54. High Intensity Therapy(2) 3.0 - 4.05. Panic Value INR > 5.0 [facility] CenterUrine [id number] 09:17:00* Test Item Value Reference Range Interpretation Comments Urine WBC (test code = 5821-4) >50 0-5 [facility] CenterU[facility] EBD5881-82-53 09:17:00* Test Item Value Reference Range Interpretation Comments Urine RBC (test code = 53117-9) >50 0-5 [facility] CenterUrine Haniehip6715-28-16 09:17:00* Test Item Value Reference Range Interpretation Comments Urine Bacteria (test code = 64567-9) RARE NONE URINE TOO BLOODY/CLOUDY TO OBSERVE BACTERIAL PRESENCECovenant Medical CenterUrine Epithelial Dgbtn7873-28-24 09:17:00* Test Item Value Reference Range Interpretation Comments Urine Epithelial Cells (test code = 47538-4) RARE NONE [facility] CenterUrine Mburv3888-58-43 09:07:00* Test Item Value Reference Range Interpretation Comments Urine Color (test code = 5778-6) RED YELLOW [facility] CenterUrine Nnqrfiw9883-13-75 09:07:00* Test Item Value Reference Range Interpretation Comments Urine Clarity (test code = 03066-1) CLOUDY CLEAR [facility] CenterUrine Specific Jjkwfmr0745-00-96 09:07:00 * Test Item Value Reference Range Interpretation Comments Urine Specific [place] (test code = 5811-5) 1.015 1.010-1.02 5 [facility] CenterUrine rS2469-08-19 09:07:00* Test Item Value Reference Range Interpretation Comments Urine pH (test code = 07288-8) 5.5 5-7 [facility] CenterU[facility] Leukocyte Igfcebwr7505-01-82 09:07:00* Test Item Value Reference Range Interpretation Comments Urine Leukocyte Esterase (test code = 5799-2) LARGE NEGATIVE [facility] CenterUrine Mljqghu7746-29-07 09:07:00* Test Item Value Reference Range Interpretation Comments Urine Nitrite (test code = 91805-4) POSITIVE NEGATIVE [facility] CenterUrine Ndzkjwn1396-23-35 09:07:00* Test Item Value Reference Range Interpretation Comments Urine Protein (test code = 5804-0) >=300 NEGATIVE [facility] CenterUrine Glucose (UA)2019-12-24 09:07:00* Test Item Value Reference Range Interpretation Comments Urine Glucose (UA) (test code = 2349-9) NEGATIVE NEGATIVE [facility] CenterU[facility] Nyaeuyd9250-02-61 09:07:00* Test Item Value Reference Range Interpretation Comments Urine Ketones (test code = 05200-1) 1+ NEGATIVE [facility] CenterU[facility] Qrnjvbimbsoc9185-76-95 09:07:00* Test Item Value Reference Range Interpretation Comments Urine Urobilinogen (test code = 62417-2) 1 0.2-1 [facility] CenterUrine Icakmmihs8606-98-23 09:07:00* Test Item Value Reference Range Interpretation Comments Urine Bilirubin (test code = 1978-6) LARGE NEGATIVE [facility] CenterUrine Vaice3208-32-54 09:07:00* Test Item Value Reference Range Interpretation Comments Urine Blood (test code = 24697-8) 3+ NEGATIVE [facility] CenterWhite Blood Dgitd6923-33-84 09:03:00* Test Item Value Reference Range Interpretation Comments White Blood Count (test code = 6690-2) 7.85 4.8-10.8 [facility] CenterRed Blood Kefiv3949-96-31 09:03:00* Test Item Value Reference Range Interpretation Comments Red Blood Count (test code = 789-8) 4.68 4.3-5.7 [facility] CenterHemoglobin2020-03-23 09:03:00* Test Item Value Reference Range Interpretation Comments Hemoglobin (test code = 86504-7) 14.0 14.0-18.0 [facility] CenterHematocrit2020-03-23 09:03:00* Test Item Value Reference Range Interpretation Comments Hematocrit (test code = 4544-3) 40.4 38.2-49.6 [facility] CenterMean Corpuscular Guivcs2612-87-27 09:03:00* Test Item Value Reference Range Interpretation Comments Mean Corpuscular Volume (test code = 787-2) 86.3 81-99 [facility] CenterMean Corpuscular Kotergyqxb0055-66-85 09:03:00* Test Item Value Reference Range Interpretation Comments Mean Corpuscular Hemoglobin (test code = 785-6) 29.9 28-32 [facility] CenterMean Corpuscular Hemoglobin Concent 2019-12-24 09:03:00* Test Item Value Reference Range Interpretation Comments Mean Corpuscular Hemoglobin Concent (test code = 786-4) 34.7 31-35 [facility] CenterRed Cell Distribution Xmsrz8220-59-13 09:03:00* Test Item Value Reference Range Interpretation Comments Red Cell Distribution Width (test code = 86868-2) 14.0 11.7 -14.4 [facility] CenterPlatelet Uzswc8604-94-18 09:03:00* Test Item Value Reference Range Interpretation Comments Platelet Count (test code = 777-3) 234 140-360 [facility] CenterNeutrophils (%) (Auto)2019-12-24 09:03:00 * Test Item Value Reference Range Interpretation Comments Neutrophils (%) (Auto) (test code = 02538-9) 83.0 38.7-80.0 [facility] CenterLymphocytes (%) (Auto)2019-12-24 09:03:00 * Test Item Value Reference Range Interpretation Comments Lymphocytes (%) (Auto) (test code = 736-9) 9.0 18.0-39.1 [facility] CenterMonocytes (%) (Auto)2019-12-24 09:03:00* Test Item Value Reference Range Interpretation Comments Monocytes (%) (Auto) (test code = 5905-5) 6.6 4.4-11.3 [facility] CenterEosinophils (%) (Auto)2019-12-24 09:03:00 * Test Item Value Reference Range Interpretation Comments Eosinophils (%) (Auto) (test code = 713-8) 0.6 0.0-6.0 [facility] CenterBasophils (%) (Auto)2019-12-24 09:03:00* Test Item Value Reference Range Interpretation Comments Basophils (%) (Auto) (test code = 706-2) 0.5 0.0-1.0 [facility] CenterIM GRANULOCYTES %2019-12-24 09:03:00* Test Item Value Reference Range Interpretation Comments IM GRANULOCYTES % (test code = IM GRANULOCYTES %) 0.3 0.0- 1.0 [facility] CenterNeutrophils # (Auto)2019-12-24 09:03:00* Test Item Value Reference Range Interpretation Comments Neutrophils # (Auto) (test code = 751-8) 6.5 2.1-6.9 [facility] CenterLymphocytes # (Auto)2019-12-24 09:03:00* Test Item Value Reference Range Interpretation Comments Lymphocytes # (Auto) (test code = 43774-0) 0.7 1.0-3.2 [facility] CenterMonocytes # (Auto)2019-12-24 09:03:00* Test Item Value Reference Range Interpretation Comments Monocytes # (Auto) (test code = 742-7) 0.5 0.2-0.8 [facility] CenterEosinophils # (Auto)2019-12-24 09:03:00* Test Item Value Reference Range Interpretation Comments Eosinophils # (Auto) (test code = 711-2) 0.1 0.0-0.4 [facility] CenterBasophils # (Auto)2019-12-24 09:03:00* Test Item Value Reference Range Interpretation Comments Basophils # (Auto) (test code = 704-7) 0.0 0.0-0.1 [facility] CenterAbsolute Immature Granulocyte (auto 2019-12-24 09:03:00* Test Item Value Reference Range Interpretation Comments Absolute Immature Granulocyte (auto (dennis t code = Absolute Immature Granulocyte (auto) 0.02 0-0.1 [facility] CenterTotal Nvjaowoze3248-03-65 23:18:00* Test Item Value Reference Range Interpretation Comments Total Bilirubin (test code = 1975-2) 0.7 0.2-1.2 [facility] CenterAspartate Amino Transf (AST/SGOT) 2019-11-28 23:18:00* Test Item Value Reference Range Interpretation Comments Aspartate Amino Transf (AST/SGOT) (test code = Aspartate Amino Transf (AST/SGOT)) 17 5-34 [facility] CenterAlanine Aminotransferase (ALT/SGPT) 2019-11-28 23:18:00* Test Item Value Reference Range Interpretation Comments Alanine Aminotransferase (ALT/SGPT) (test code = 1742-6) 23 0-55 [facility] Campustal Sqgxpgb0135-88-03 23:18:00* Test Item Value Reference Range Interpretation Comments Total Protein (test code = 2885-2) 7.0 6.5-8.1 [facility] CenterAlbumin2020-02-26 23:18:00* Test Item Value Reference Range Interpretation Comments Albumin (test code = 1751-7) 4.2 3.5-5.0 [facility] CenterGlobulin2020-02-26 23:18:00* Test Item Value Reference Range Interpretation Comments Globulin (test code = 86929-7) 2.8 2.3-3.5 [facility] CenterAlbumin/Globulin Xtqjd4113-47-59 23:18:00 * Test Item Value Reference Range Interpretation Comments Albumin/Globulin Ratio (test code = 1759-0) 1.5 0.8-2.0 [facility] CenterAlkaline Fquothwyvbr7289-03-26 23:18:00* Test Item Value Reference Range Interpretation Comments Alkaline Phosphatase (test code = 6768-6) 69 40-150 [facility]
== END | disposition left against medical advice (07) ==
LOC: EDSTATUS 08:17 → ER 17:20
DX: N35.919 Unspecified urethral stricture, male, unspecified site (principal)
CPT/HCPCS: 36415; 71046; 80048; 81001; 84443; 85025; 85610; 85730; 87086

== ENCOUNTER → 2021-03-26 | Outpatient (CLI) | payer MEDICARE ==
[~2021-03-26] MED LIST changes: +BACTRIM DS TAB1 EACH PO; +REGADENOSON 0.4 MG/5 ML SYR IV ONE; +TYLENOL WITH C1 EACH PO
== END ==
LOC: NM 08:31
PROVIDERS: ATTEND Internal Medicine Cardiovascular Disease
DX: I25.10 Atherosclerotic heart disease of native coronary artery without angina pectoris (principal); R07.9 Chest pain, unspecified
CPT/HCPCS: 78452; 93017; 93306; A9502; J2785

== ENCOUNTER → 2021-04-09 | Day surgery (SDC) | payer MEDICARE ==
[2021-04-07 11:52] LABS: BASOPHILS # (AUTO) 0.1 (0.0-0.1); BASOPHILS % 0.6 % (0.0-1.0); EOSINOPHILS # (AUTO) 0.5 (0.0-0.4); EOSINOPHILS % 6.6 % (0.0-6.0); HEMATOCRIT 42.5 % (38.2-49.6); HEMOGLOBIN 14.5 g/dL (14.0-18.0); LYMPHOCYTES # (AUTO) 1.2 (1.0-3.2); LYMPHOCYTES % 14.4 % (18.0-39.1); MEAN CORPUSCULAR HEMOGLOBIN 30.2 pg (28-32); MEAN CORPUSCULAR HGB CONC 34.1 g/dL (31-35); MEAN CORPUSCULAR VOLUME 88.5 fL (81-99); MONOCYTES # (AUTO) 0.7 (0.2-0.8); MONOCYTES % 8.8 % (4.4-11.3); NEUTROPHILS # (AUTO) 5.7 (2.1-6.9); NEUTROPHILS % 69.2 % (38.7-80.0); PLATELET COUNT 129 x10e3/uL (140-360); RED CELL DISTRIBUTION WIDTH 13.8 % (11.7-14.4)
[2021-04-07 12:05] LABS: INR 0.94; PROTHROMBIN TIME 13.1 seconds (11.9-14.5)
[2021-04-07 12:14] LABS: ALBUMIN 4.4 g/dL (3.5-5.0); ALBUMIN/GLOBULIN RATIO 1.4 (0.8-2.0); ANION GAP 16.8 mmol/L (8-16); CALCIUM 9.6 mg/dL (8.4-10.2); CREATININE, SERUM 1.04 mg/dL (0.72-1.25); POTASSIUM 4.8 mmol/L (3.5-5.1)
[2021-04-07 12:34] LABS: PLATELET ESTIMATE SLIGHTLY DECREASED; PLATELET MORPHOLOGY COMMENT FEW EDTA CLUMPING; RBC MORPHOLOGY COMMENT NORMAL
[~2021-04-09] VITALS: Ht 175.3 cm; Wt 90.7 kg
[2021-04-09] VITALS (10 sets, daily range): BP systolic 134–177; BP diastolic 62–97
[~2021-04-09] MED LIST changes: +ASPIRIN EC81 MG PO; +FENTANYL CITRATE/PF 100MCG/2 ML INJ ONE; +FINASTERIDE5 MG PO; +FLOMAX0.4 MG PO; +HEPARIN SOD/SOD CHLORIDE 2,000 ML ONE; +IOPAMIDOL 370 MG/ML 200 ML INFUS..BTL INJ ONE; +LIDOCAINE HCL 2% LOCAL 20 ML VIAL ONE; +LISINOPRIL2.5 MG PO; +MECLIZINE HCL12.5 MG PO; +MIDAZOLAM HCL 2 MG/2 ML VIAL ONE; -REGADENOSON 0.4 MG/5 ML SYR IV ONE; +SIMVASTATIN20 MG PO; +SODIUM CHLORIDE 0.9% 1000ML 1,000 ML ONE; +VERAPAMIL HCL 2.5 MG/ML 2 ML VIAL ONE
== END | disposition home or self-care (01) ==
LOC: CATH LAB 10:18
PROVIDERS: ATTEND Internal Medicine Cardiovascular Disease
DX: I25.10 Atherosclerotic heart disease of native coronary artery without angina pectoris (principal); I10 Essential (primary) hypertension; E78.00 Pure hypercholesterolemia, unspecified; I49.3 Ventricular premature depolarization; E11.9 Type 2 diabetes mellitus without complications; I25.2 Old myocardial infarction; Z82.49 Family history of ischemic heart disease and other diseases of the circulatory system; Z79.84 Long term (current) use of oral hypoglycemic drugs
CPT/HCPCS: 36415 ×2; 80053; 82948; 85025; 85610; 93454; C1887; J2001; J2250; J3010; J7030; Q9967; 99152; 99153

== ENCOUNTER 2022-10-11 01:54 | Inpatient (IN) | payer MEDICARE ==
[~2022-10-11] VITALS: Ht 175.3 cm; Wt 90.7 kg
[~2022-10-11 01:54] MED LIST changes: -FENTANYL CITRATE/PF 100MCG/2 ML INJ ONE; -HEPARIN SOD/SOD CHLORIDE 2,000 ML ONE; -IOPAMIDOL 370 MG/ML 200 ML INFUS..BTL INJ ONE; -LIDOCAINE HCL 2% LOCAL 20 ML VIAL ONE; -MIDAZOLAM HCL 2 MG/2 ML VIAL ONE; -SODIUM CHLORIDE 0.9% 1000ML 1,000 ML ONE; -VERAPAMIL HCL 2.5 MG/ML 2 ML VIAL ONE
[2022-10-11] MEDS ORDERED: LIDOCAINE JELLY 2% 10ML URO-JET TOP ONE (02:00)
[2022-10-11 02:11] LABS: BASOPHILS # (AUTO) 0.1 (0.0-0.1); BASOPHILS % 0.6 % (0.0-1.0); EOSINOPHILS # (AUTO) 0.3 (0.0-0.4); HEMATOCRIT 42.5 % (38.2-49.6); HEMOGLOBIN 13.8 g/dL (14.0-18.0); LYMPHOCYTES # (AUTO) 1.5 (1.0-3.2); LYMPHOCYTES % 14.2 % (18.0-39.1); MEAN CORPUSCULAR HEMOGLOBIN 29.7 pg (28-32); MEAN CORPUSCULAR HGB CONC 32.5 g/dL (31-35); MEAN CORPUSCULAR VOLUME 91.6 fL (81-99); MONOCYTES # (AUTO) 0.6 (0.2-0.8); MONOCYTES % 6.1 % (4.4-11.3); NEUTROPHILS # (AUTO) 7.8 (2.1-6.9); NEUTROPHILS % 75.8 % (38.7-80.0); PLATELET COUNT 289 x10e3/uL (140-360); RED BLOOD COUNT 4.64 x10e6/uL (4.3-5.7); RED CELL DISTRIBUTION WIDTH 13.2 % (11.7-14.4)
[2022-10-11 02:19] LABS: INR 1.02; PROTHROMBIN TIME 13.6 seconds (11.9-14.5)
[2022-10-11 02:20] LABS: PARTIAL THROMBOPLASTIN TIME 33.7 seconds (23.8-35.5)
[2022-10-11 02:30] LABS: ALBUMIN 4.2 g/dL (3.5-5.0); ALBUMIN/GLOBULIN RATIO 1.3 (0.8-2.0); CALCIUM 9.5 mg/dL (8.4-10.2); CREATININE, SERUM 0.9 mg/dL (0.72-1.25)
[2022-10-11 03:02] LABS: CLARITY,URINE CLOUDY (CLEAR); COLOR,URINE RED (YELLOW); LEUKOCYTE ESTERASE ,URINE LARGE (NEGATIVE); NITRITE,URINE POSITIVE (NEGATIVE); PROTEIN,URINE DIPSTICK >=300 (NEGATIVE)
[2022-10-11 03:03] LABS: BACTERIA,URINE MANY /HPF; EPITHELIAL CELLS,URINE FEW /LPF; KETONES,URINE 1+ (NEGATIVE); RBC,URINE >50 /HPF (0-5)
[2022-10-11] MEDS ORDERED: ONDANSETRON HCL INJ 2MG/ML 2ML 2 MG/ML VIAL IV PRN (03:15)
[2022-10-11] MEDS ORDERED: DEXTROSE 50% SYRINGE 50 ML IV PRN (03:15)
[2022-10-11] MEDS: SODIUM CHLORIDE 0.9% 1000ML 1,000 ML IV SCH ×2 (03:43→17:41)
[2022-10-11 04:18] VITALS: BP 134/70
[2022-10-11 04:20] VITALS: BP 134/76
[2022-10-11] MEDS ORDERED: PLAVIX75 MG PO (04:43)
[2022-10-11] MEDS: INSULIN REGULAR, HUMAN 100 UNIT/1 ML SQ SCH ×4 (07:30→20:00)
[2022-10-11 08:00] VITALS: BP 129/64
[2022-10-11] MEDS ORDERED: MECLIZINE HCL 12.5 MG TAB PO PRN (08:30)
[2022-10-11] MEDS ORDERED: ACETAMINOPHEN 325 MG TAB PO PRN (08:30)
[2022-10-11 08:52] LABS: CHOL/HDL RATIO 3.1 (3.9-4.7)
[2022-10-11] MEDS: LEVOTHYROXINE SODIUM 88 MCG TAB PO SCH (09:00)
[2022-10-11] MEDS: FINASTERIDE 5 MG TAB PO SCH (09:57)
[2022-10-11] MEDS: LISINOPRIL 2.5 MG TAB PO SCH (09:57)
[2022-10-11] MEDS: METOPROLOL TARTRATE 25 MG TAB PO SCH ×2 (09:57→17:40)
[2022-10-11 11:55] VITALS: BP 139/59
[2022-10-11 16:00] VITALS: BP 127/58
[2022-10-11] MEDS: FAMOTIDINE 20 MG TAB PO SCH (17:41)
[2022-10-11] MEDS: TAMSULOSIN HCL 0.4 MG CAP PO SCH (20:00)
[2022-10-11] MEDS: SIMVASTATIN 40 MG TAB PO SCH (20:00)
[2022-10-11 20:07] VITALS: BP 145/70
[2022-10-12 01:23] VITALS: BP 145/70
[2022-10-12] MEDS: LEVOTHYROXINE SODIUM 88 MCG TAB PO SCH (05:14)
[2022-10-12 05:40] LABS: BASOPHILS # (AUTO) 0.1 (0.0-0.1); BASOPHILS % 0.8 % (0.0-1.0); EOSINOPHILS # (AUTO) 0.5 (0.0-0.4); EOSINOPHILS % 6.1 % (0.0-6.0); HEMATOCRIT 39.3 % (38.2-49.6); HEMOGLOBIN 12.6 g/dL (14.0-18.0); LYMPHOCYTES % 13.5 % (18.0-39.1); MEAN CORPUSCULAR HEMOGLOBIN 29.9 pg (28-32); MEAN CORPUSCULAR HGB CONC 32.1 g/dL (31-35); MEAN CORPUSCULAR VOLUME 93.1 fL (81-99); MONOCYTES # (AUTO) 0.6 (0.2-0.8); MONOCYTES % 8.5 % (4.4-11.3); NEUTROPHILS # (AUTO) 5.4 (2.1-6.9); NEUTROPHILS % 70.8 % (38.7-80.0); PLATELET COUNT 239 x10e3/uL (140-360); RED BLOOD COUNT 4.22 x10e6/uL (4.3-5.7); RED CELL DISTRIBUTION WIDTH 13.6 % (11.7-14.4)
[2022-10-12 05:57] LABS: ALBUMIN 3.6 g/dL (3.5-5.0); ALBUMIN/GLOBULIN RATIO 1.2 (0.8-2.0); ANION GAP 12.9 mmol/L (8-16); CALCIUM 8.5 mg/dL (8.4-10.2); CREATININE, SERUM 0.77 mg/dL (0.72-1.25); POTASSIUM 3.9 mmol/L (3.5-5.1)
[2022-10-12] MEDS: INSULIN REGULAR, HUMAN 100 UNIT/1 ML SQ SCH ×4 (07:30→21:00)
[2022-10-12 08:00] VITALS: BP 133/62
[2022-10-12] MEDS: SODIUM CHLORIDE 0.9% 1000ML 1,000 ML IV SCH (08:03)
[2022-10-12] MEDS: FINASTERIDE 5 MG TAB PO SCH (09:15)
[2022-10-12] MEDS: METOPROLOL TARTRATE 25 MG TAB PO SCH ×2 (09:15→16:29)
[2022-10-12] MEDS: LISINOPRIL 2.5 MG TAB PO SCH (09:15)
[2022-10-12] MEDS: FAMOTIDINE 20 MG TAB PO SCH ×3 (09:16→16:40)
[2022-10-12] MEDS ORDERED: ONDANSETRON HCL 4 MG ORAL DISINTEGRATING TAB SL PRN (09:45)
[2022-10-12 11:44] VITALS: BP 147/59
[2022-10-12 16:00] VITALS: BP 115/54
[2022-10-12] MEDS: DOCUSATE SODIUM 100 MG CAP PO SCH (20:57)
[2022-10-12] MEDS: TAMSULOSIN HCL 0.4 MG CAP PO SCH (20:57)
[2022-10-12] MEDS: SIMVASTATIN 40 MG TAB PO SCH (20:57)
[2022-10-12] MEDS: POLYETHYLENE GLYCOL 3350 17 GM PACK PO SCH (20:57)
[2022-10-12 21:35] VITALS: BP 128/67
[2022-10-13 00:30] VITALS: BP 134/78
[2022-10-13] MEDS: SODIUM CHLORIDE 0.9% 1000ML 1,000 ML IV SCH (03:10)
[2022-10-13 05:21] VITALS: BP 147/58
[2022-10-13] MEDS ORDERED: CEPHALEXIN500 MG PO (05:30)
[2022-10-13] MEDS: LEVOTHYROXINE SODIUM 88 MCG TAB PO SCH (06:42)
[2022-10-13 07:11] VITALS: BP 147/58
[2022-10-13] MEDS: INSULIN REGULAR, HUMAN 100 UNIT/1 ML SQ SCH (07:30)
[2022-10-13] MEDS: FINASTERIDE 5 MG TAB PO SCH (08:05)
[2022-10-13] MEDS: FAMOTIDINE 20 MG TAB PO SCH (08:05)
[2022-10-13] MEDS: LISINOPRIL 2.5 MG TAB PO SCH (08:06)
[2022-10-13] MEDS: DOCUSATE SODIUM 100 MG CAP PO SCH (08:06)
[2022-10-13] MEDS: METOPROLOL TARTRATE 25 MG TAB PO SCH (08:06)
[2022-10-13] MEDS: POLYETHYLENE GLYCOL 3350 17 GM PACK PO SCH (08:07)
[2022-10-13 08:12] VITALS: BP 139/63
[2022-10-13 11:42] VITALS: BP 144/84
[2022-10-13 13:42] VITALS: BP 144/84
== END 2022-10-13 14:17 | disposition home or self-care (01) | DRG 694 ==
LOC: ER 01:57 → ERHOLD 03:17 → OBSVTOIN 03:17 → MED/SURG 04:18
PROVIDERS: ADMIT Internal Medicine; ATTEND Internal Medicine
DX: N20.0 Calculus of kidney (principal); N39.0 Urinary tract infection, site not specified; R31.0 Gross hematuria; N35.919 Unspecified urethral stricture, male, unspecified site; B95.2 Enterococcus as the cause of diseases classified elsewhere; B96.89 Other specified bacterial agents as the cause of diseases classified elsewhere; E03.9 Hypothyroidism, unspecified; E78.5 Hyperlipidemia, unspecified; N40.0 Benign prostatic hyperplasia without lower urinary tract symptoms; R73.03 Prediabetes; H81.10 Benign paroxysmal vertigo, unspecified ear; I25.2 Old myocardial infarction; I10 Essential (primary) hypertension; Z79.82 Long term (current) use of aspirin; Z79.84 Long term (current) use of oral hypoglycemic drugs; Z79.899 Other long term (current) drug therapy; Z79.02 Long term (current) use of antithrombotics/antiplatelets; Z87.440 Personal history of urinary (tract) infections; Z98.890 Other specified postprocedural states; Z95.5 Presence of coronary angioplasty implant and graft; Z80.42 Family history of malignant neoplasm of prostate; Z80.0 Family history of malignant neoplasm of digestive organs
CPT/HCPCS: 36415; 74176; 80053; 80061; 81001; 82948; 83036; 85025; 85610; 85730; 87086; 87186; 96361; 99252; 99284; J0696; J1817; J7030

== ENCOUNTER 2024-05-10 17:23 | Emergency (ER) | payer MEDICARE ==
[~2024-05-10] VITALS: Ht 175.3 cm; Wt 90.7 kg
[~2024-05-10 17:23] MED LIST changes: +CEPHALEXIN500 MG PO; +PLAVIX75 MG PO
[2024-05-10 18:48] LABS: BASOPHILS # (AUTO) 0.1 (0.0-0.1); BASOPHILS % 0.6 % (0.0-1.0); EOSINOPHILS # (AUTO) 0.2 (0.0-0.4); HEMATOCRIT 43.6 % (38.2-49.6); HEMOGLOBIN 14.8 g/dL (14.0-18.0); LYMPHOCYTES # (AUTO) 1.2 (1.0-3.2); LYMPHOCYTES % 12.1 % (18.0-39.1); MEAN CORPUSCULAR HEMOGLOBIN 30.3 pg (28-32); MEAN CORPUSCULAR HGB CONC 33.9 g/dL (31-35); MEAN CORPUSCULAR VOLUME 89.3 fL (81-99); MONOCYTES # (AUTO) 0.7 (0.2-0.8); MONOCYTES % 7.1 % (4.4-11.3); NEUTROPHILS # (AUTO) 7.7 (2.1-6.9); NEUTROPHILS % 77.9 % (38.7-80.0); PLATELET COUNT 202 x10e3/uL (140-360); RED BLOOD COUNT 4.88 x10e6/uL (4.3-5.7); RED CELL DISTRIBUTION WIDTH 13.9 % (11.7-14.4); WHITE BLOOD COUNT 9.84 x10e3/uL (4.8-10.8)
[2024-05-10 19:07] LABS: ALBUMIN 4.2 g/dL (3.5-5.0); ALBUMIN/GLOBULIN RATIO 1.4 (0.8-2.0); ANION GAP 14.8 mmol/L (8-16); BILIRUBIN,TOTAL 1.1 mg/dL (0.2-1.2); CALCIUM 9.3 mg/dL (8.4-10.2); CREATININE, SERUM 0.84 mg/dL (0.72-1.25); POTASSIUM 3.8 mmol/L (3.5-5.1); TOTAL PROTEIN 7.1 g/dL (6.5-8.1)
[2024-05-10 19:21] LABS: BILIRUBIN,URINE NEGATIVE (NEGATIVE); CLARITY,URINE SL CLOUDY (CLEAR); COLOR,URINE YELLOW (YELLOW); GLUCOSE, URINE 500 (NEGATIVE); KETONES,URINE 1+ (NEGATIVE); LEUKOCYTE ESTERASE ,URINE NEGATIVE (NEGATIVE); NITRITE,URINE NEGATIVE (NEGATIVE); PH,URINE 6 (5 - 7); PROTEIN,URINE DIPSTICK NEGATIVE (NEGATIVE); URINE UROBILINOGEN 0.2 mg/dL (0.2 - 1)
[2024-05-10 19:35] LABS: BACTERIA,URINE RARE /HPF; TRANSITIONAL EPI CELLS,URINE FEW; WBC,URINE (MAN) 0-5 /HPF (0-5)
[2024-05-10 20:27] VITALS: PULSE 84; RESP 18; TEMP 98.9
[2024-05-10 21:09] VITALS: BP 149/68; PULSE 55; RESP 16; TEMP 98.2; O2SAT 97
== END 2024-05-10 21:06 | disposition home or self-care (01) ==
LOC: ER 18:13
DX: R53.1 Weakness (principal); R42 Dizziness and giddiness; R53.83 Other fatigue; I10 Essential (primary) hypertension; E11.9 Type 2 diabetes mellitus without complications; E03.9 Hypothyroidism, unspecified; E78.5 Hyperlipidemia, unspecified; M54.9 Dorsalgia, unspecified; G89.29 Other chronic pain; Z11.52 Encounter for screening for COVID-19; R94.31 Abnormal electrocardiogram [ECG] [EKG]; I25.2 Old myocardial infarction
CPT/HCPCS: 36415; 70450; 71045; 80053; 81001; 84484; 85025; 93005; 99284; U0002

== ENCOUNTER 2024-09-26 08:06 | Emergency (ER) | payer MEDICARE ==
[~2024-09-26] VITALS: Ht 175.3 cm; Wt 90.7 kg
[2024-09-26] MEDS: ACETAMINOPHEN/CODEINE 300MG - 30MG TAB PO ONE (10:40)
[2024-09-26 15:19] VITALS: PULSE 73; RESP 16; TEMP 98.3; O2SAT 98
[2024-09-27] MEDS ORDERED: FARXIGA5 MG PO (17:21)
== END 2024-09-26 15:35 | disposition home or self-care (01) ==
LOC: ER 08:31
DX: Z46.6 Encounter for fitting and adjustment of urinary device (principal); R31.9 Hematuria, unspecified; I10 Essential (primary) hypertension; E11.9 Type 2 diabetes mellitus without complications; E78.5 Hyperlipidemia, unspecified; E03.9 Hypothyroidism, unspecified; M54.9 Dorsalgia, unspecified; G89.29 Other chronic pain; I25.2 Old myocardial infarction; Z95.5 Presence of coronary angioplasty implant and graft
CPT/HCPCS: 51798; 99283

== ENCOUNTER 2024-09-27 10:41 | Inpatient (IN) | payer MEDICARE ==
[~2024-09-27] VITALS: Ht 175.3 cm; Wt 80.3 kg
[2024-09-27] VITALS (7 sets, daily range): BP systolic 152–159; BP diastolic 72–76; PULSE 88–95; RESP 18–20; TEMP 98.1–99.4; O2SAT 95–100
[2024-09-27] MEDS ORDERED: ONDANSETRON HCL INJ 2MG/ML 2ML 2 MG/ML VIAL IV PRN (11:00)
[2024-09-27 11:17] LABS: BASOPHILS % 0.2 % (0.0-1.0); EOSINOPHILS # (AUTO) 0.1 (0.0-0.4); EOSINOPHILS % 0.3 % (0.0-6.0); HEMOGLOBIN 13.2 g/dL (14.0-18.0); LYMPHOCYTES # (AUTO) 0.4 (1.0-3.2); LYMPHOCYTES % 2.1 % (18.0-39.1); MEAN CORPUSCULAR HEMOGLOBIN 30.9 pg (28-32); MEAN CORPUSCULAR HGB CONC 33.8 g/dL (31-35); MEAN CORPUSCULAR VOLUME 91.3 fL (81-99); MONOCYTES # (AUTO) 1.4 (0.2-0.8); MONOCYTES % 7.6 % (4.4-11.3); NEUTROPHILS # (AUTO) 16.4 (2.1-6.9); NEUTROPHILS % 89.3 % (38.7-80.0); PLATELET COUNT 190 x10e3/uL (140-360); RED BLOOD COUNT 4.27 x10e6/uL (4.3-5.7); RED CELL DISTRIBUTION WIDTH 13.6 % (11.7-14.4); WHITE BLOOD COUNT 18.35 x10e3/uL (4.8-10.8)
[2024-09-27 11:53] LABS: ALBUMIN 3.7 g/dL (3.5-5.0); ALBUMIN/GLOBULIN RATIO 1.2 (0.8-2.0); ANION GAP 16.8 mmol/L (8-16); BILIRUBIN,TOTAL 1.1 mg/dL (0.2-1.2); CALCIUM 9.1 mg/dL (8.4-10.2); CREATININE, SERUM 0.89 mg/dL (0.72-1.25); POTASSIUM 3.8 mmol/L (3.5-5.1); TOTAL PROTEIN 6.8 g/dL (6.5-8.1)
[2024-09-27] MEDS: SODIUM CHLORIDE 0.9% 1000ML 1,000 ML IV SCH (11:55)
[2024-09-27] MEDS ORDERED: INFLUENZA VIRUS VAC SPLIT INJ 0.5 ML SYR IM SCH (16:01)
[2024-09-27] MEDS ORDERED: FARXIGA5 MG PO (17:21)
[2024-09-28] VITALS (9 sets, daily range): BP systolic 126–146; BP diastolic 56–68; PULSE 59–74; RESP 17–21; TEMP 97–98.6; O2SAT 97–98
[2024-09-28 07:11] LABS: BASOPHILS % 0.4 % (0.0-1.0); EOSINOPHILS # (AUTO) 0.2 (0.0-0.4); HEMATOCRIT 33.7 % (38.2-49.6); HEMOGLOBIN 11.2 g/dL (14.0-18.0); LYMPHOCYTES # (AUTO) 0.6 (1.0-3.2); LYMPHOCYTES % 6.3 % (18.0-39.1); MEAN CORPUSCULAR HEMOGLOBIN 30.8 pg (28-32); MEAN CORPUSCULAR HGB CONC 33.2 g/dL (31-35); MEAN CORPUSCULAR VOLUME 92.6 fL (81-99); MONOCYTES % 9.9 % (4.4-11.3); NEUTROPHILS # (AUTO) 8.1 (2.1-6.9); PLATELET COUNT 179 x10e3/uL (140-360); RED BLOOD COUNT 3.64 x10e6/uL (4.3-5.7); RED CELL DISTRIBUTION WIDTH 13.6 % (11.7-14.4); WHITE BLOOD COUNT 9.96 x10e3/uL (4.8-10.8)
[2024-09-28 07:43] LABS: ALBUMIN/GLOBULIN RATIO 1.1 (0.8-2.0); ANION GAP 12.4 mmol/L (8-16); BILIRUBIN,TOTAL 1.1 mg/dL (0.2-1.2); CALCIUM 8.4 mg/dL (8.4-10.2); CREATININE, SERUM 0.64 mg/dL (0.72-1.25); TOTAL PROTEIN 5.7 g/dL (6.5-8.1)
[2024-09-28 07:46] LABS: POTASSIUM 3.4 mmol/L (3.5-5.1)
[2024-09-28] MEDS ORDERED: HYDRALAZINE HCL 20 MG/ML VIAL IV PRN (09:30)
[2024-09-28] MEDS: METOPROLOL TARTRATE 25 MG TAB PO SCH (16:09)
[2024-09-28] MEDS: SIMVASTATIN 40 MG TAB PO SCH (21:09)
[2024-09-28] MEDS: TAMSULOSIN HCL 0.4 MG CAP PO SCH (21:09)
[2024-09-29] VITALS (10 sets, daily range): BP systolic 104–153; BP diastolic 50–64; PULSE 50–84; RESP 16–20; TEMP 97.4–98.5; O2SAT 95–100
[2024-09-29] MEDS: LEVOTHYROXINE SODIUM 88 MCG TAB PO SCH (06:00)
[2024-09-29] MEDS: FINASTERIDE 5 MG TAB PO SCH (08:19)
[2024-09-29] MEDS: LISINOPRIL 2.5 MG TAB PO SCH (08:19)
[2024-09-29 11:30] LABS: ANION GAP 12.2 mmol/L (8-16); CALCIUM 7.9 mg/dL (8.4-10.2); CREATININE, SERUM 0.62 mg/dL (0.72-1.25)
[2024-09-29 11:32] LABS: POTASSIUM 3.2 mmol/L (3.5-5.1)
[2024-09-29] MEDS ORDERED: ONDANSETRON HCL INJ 2MG/ML 2ML 2 MG/ML VIAL ONE (16:20)
[2024-09-29] MEDS ORDERED: PROPOFOL IV EMULSION 10 MG/ML 20 ML VIAL ONE (16:20)
[2024-09-29] MEDS ORDERED: LIDOCAINE HCL 2% LOCAL INJ 5 ML SDV VIAL INJ ONE (16:20)
[2024-09-29] MEDS ORDERED: GLYCOPYRROLATE INJ 0.2 MG/ML VIAL ONE (16:43)
[2024-09-29] MEDS ORDERED: SENNA-S TABLET PO SCH (17:00)
[2024-09-29] MEDS ORDERED: DIPHENHYDRAMINE HCL 25 MG CAP PO PRN (18:00)
[2024-09-29] MEDS ORDERED: ACETAMINOPHEN 1000 MG/100 ML IV PRN (18:00)
[2024-09-29] MEDS ORDERED: ONDANSETRON HCL INJ 2MG/ML 2ML 2 MG/ML VIAL IV PRN (18:00)
[2024-09-29 18:15] LABS: BILIRUBIN,URINE NEGATIVE (NEGATIVE); CLARITY,URINE CLOUDY (CLEAR); COLOR,URINE STRAW (YELLOW); GLUCOSE, URINE NEGATIVE (NEGATIVE); KETONES,URINE NEGATIVE (NEGATIVE); LEUKOCYTE ESTERASE ,URINE 2+ (NEGATIVE); NITRITE,URINE NEGATIVE (NEGATIVE); PH,URINE 6 (5 - 7); PROTEIN,URINE DIPSTICK 1+ (NEGATIVE); URINE UROBILINOGEN 0.2 mg/dL (0.2 - 1)
[2024-09-29] MEDS: ACETAMINOPHEN/CODEINE 300MG - 30MG TAB PO PRN (18:37)
[2024-09-29 18:44] LABS: BACTERIA,URINE MANY /HPF; EPITHELIAL CELLS,URINE FEW /LPF; RBC,URINE >50 /HPF (0-5); WBC,URINE (MAN) >50 /HPF (0-5)
[2024-09-29] MEDS: SODIUM CHLORIDE 0.9% 1000ML 1,000 ML IV SCH (20:30)
[2024-09-29] MEDS: PHENAZOPYRIDINE HCL 100 MG TAB PO PRN (22:38)
[2024-09-29] MEDS: Morphine 2mg Syringe 2 MG/ML SYR IV PRN (22:49)
[2024-09-30] VITALS (9 sets, daily range): BP systolic 112–158; BP diastolic 52–74; PULSE 60–78; RESP 18–20; TEMP 97.7–98.3; O2SAT 96–99
[2024-09-30 05:46] LABS: BASOPHILS % 0.4 % (0.0-1.0); EOSINOPHILS # (AUTO) 0.4 (0.0-0.4); EOSINOPHILS % 4.5 % (0.0-6.0); HEMATOCRIT 30.5 % (38.2-49.6); HEMOGLOBIN 10.6 g/dL (14.0-18.0); LYMPHOCYTES # (AUTO) 0.9 (1.0-3.2); LYMPHOCYTES % 9.8 % (18.0-39.1); MEAN CORPUSCULAR HEMOGLOBIN 30.5 pg (28-32); MEAN CORPUSCULAR HGB CONC 34.8 g/dL (31-35); MEAN CORPUSCULAR VOLUME 87.9 fL (81-99); MONOCYTES # (AUTO) 0.8 (0.2-0.8); MONOCYTES % 8.8 % (4.4-11.3); NEUTROPHILS # (AUTO) 6.8 (2.1-6.9); NEUTROPHILS % 74.4 % (38.7-80.0); PLATELET COUNT 226 x10e3/uL (140-360); RED BLOOD COUNT 3.47 x10e6/uL (4.3-5.7); RED CELL DISTRIBUTION WIDTH 13.8 % (11.7-14.4); WHITE BLOOD COUNT 9.18 x10e3/uL (4.8-10.8)
[2024-09-30 06:20] LABS: ANION GAP 11.2 mmol/L (8-16); CALCIUM 7.8 mg/dL (8.4-10.2); CREATININE, SERUM 0.6 mg/dL (0.72-1.25); MAGNESIUM 1.7 MG/DL (1.3-2.1)
[2024-09-30 06:21] LABS: POTASSIUM 3.2 mmol/L (3.5-5.1)
[2024-09-30] MEDS: SENNA-S TABLET PO SCH (08:14)
[2024-09-30] MEDS ORDERED: MAGNESIUM SULFATE 2GM/50ML IV ONE (10:00)
[2024-09-30] MEDS: MAGNESIUM SULFATE 2GM/50ML 50 ML IV ONE (12:10)
[2024-09-30 16:26] LABS: BASOPHILS # (AUTO) 0.1 (0.0-0.1); BASOPHILS % 0.5 % (0.0-1.0); EOSINOPHILS # (AUTO) 0.6 (0.0-0.4); EOSINOPHILS % 5.2 % (0.0-6.0); HEMATOCRIT 32.6 % (38.2-49.6); HEMOGLOBIN 11.3 g/dL (14.0-18.0); LYMPHOCYTES # (AUTO) 0.8 (1.0-3.2); LYMPHOCYTES % 7.5 % (18.0-39.1); MEAN CORPUSCULAR HEMOGLOBIN 30.5 pg (28-32); MEAN CORPUSCULAR HGB CONC 34.7 g/dL (31-35); MEAN CORPUSCULAR VOLUME 88.1 fL (81-99); MONOCYTES # (AUTO) 0.9 (0.2-0.8); MONOCYTES % 8.1 % (4.4-11.3); NEUTROPHILS # (AUTO) 8.3 (2.1-6.9); NEUTROPHILS % 78.1 % (38.7-80.0); PLATELET COUNT 246 x10e3/uL (140-360); RED CELL DISTRIBUTION WIDTH 13.8 % (11.7-14.4); WHITE BLOOD COUNT 10.65 x10e3/uL (4.8-10.8)
[2024-09-30 16:37] LABS: ANION GAP 13.3 mmol/L (8-16); CALCIUM 8.2 mg/dL (8.4-10.2); CREATININE, SERUM 0.73 mg/dL (0.72-1.25)
[2024-09-30 17:02] LABS: POTASSIUM 3.3 mmol/L (3.5-5.1)
[2024-10-01] VITALS (11 sets, daily range): BP systolic 134–164; BP diastolic 60–90; PULSE 55–78; RESP 18–20; TEMP 97.7–98.5; O2SAT 96–100
[2024-10-01 07:08] LABS: BASOPHILS # (AUTO) 0.1 (0.0-0.1); BASOPHILS % 0.6 % (0.0-1.0); EOSINOPHILS # (AUTO) 0.7 (0.0-0.4); EOSINOPHILS % 7.4 % (0.0-6.0); HEMATOCRIT 34.3 % (38.2-49.6); HEMOGLOBIN 11.8 g/dL (14.0-18.0); LYMPHOCYTES # (AUTO) 1.2 (1.0-3.2); LYMPHOCYTES % 13.4 % (18.0-39.1); MEAN CORPUSCULAR HEMOGLOBIN 30.4 pg (28-32); MEAN CORPUSCULAR HGB CONC 34.4 g/dL (31-35); MEAN CORPUSCULAR VOLUME 88.4 fL (81-99); MONOCYTES # (AUTO) 0.8 (0.2-0.8); MONOCYTES % 8.5 % (4.4-11.3); NEUTROPHILS # (AUTO) 6.3 (2.1-6.9); NEUTROPHILS % 69.2 % (38.7-80.0); PLATELET COUNT 267 x10e3/uL (140-360); RED BLOOD COUNT 3.88 x10e6/uL (4.3-5.7); RED CELL DISTRIBUTION WIDTH 13.8 % (11.7-14.4); WHITE BLOOD COUNT 9.06 x10e3/uL (4.8-10.8)
[2024-10-01 07:41] LABS: ANION GAP 12.3 mmol/L (8-16); BLOOD UREA NITROGEN < 5 mg/dL (7-26); CALCIUM 8.5 mg/dL (8.4-10.2); CARBON DIOXIDE 22 mmol/L (22-29); CHLORIDE 105 mmol/L (98-107); CREATININE, SERUM 0.63 mg/dL (0.72-1.25); EST GLOMERULAR FILTRATION RATE 96 ML/MIN (>=60); GLUCOSE 105 mg/dL (74-118); SODIUM 136 mmol/L (136-145)
[2024-10-01 07:47] LABS: BUN/CREATININE RATIO 8 (6-25); POTASSIUM 3.3 mmol/L (3.5-5.1)
[2024-10-01] MEDS: POTASSIUM CHLORIDE 10MEQ EA PO ONE (09:58)
[2024-10-01] MEDS: BISACODYL 10 MG SUPP PR ONE (18:26)
[2024-10-01] MEDS: BISACODYL 5 MG TAB EC PO ONE (18:27)
[2024-10-02] VITALS (8 sets, daily range): BP systolic 112–161; BP diastolic 59–72; PULSE 58–86; RESP 18–20; TEMP 97.3–98.3; O2SAT 20–100
[2024-10-02] MEDS: ACETAMINOPHEN 325 MG TAB PO PRN (09:47)
[2024-10-02] MEDS: BISACODYL 10 MG SUPP PR ONE (14:03)
[2024-10-02] MEDS: BISACODYL 5 MG TAB EC PO ONE (17:18)
[2024-10-03] VITALS: BP 126/82; PULSE 82; RESP 18; TEMP 97.6; O2SAT 97
[2024-10-03 04:00] VITALS: BP 128/72; PULSE 77; RESP 18; TEMP 98.6; O2SAT 98
[2024-10-03 08:00] VITALS: BP 128/72; PULSE 77; RESP 18; TEMP 98.6; O2SAT 98
[2024-10-03 08:28] VITALS: BP 119/74; PULSE 74; RESP 20; TEMP 98.1; O2SAT 98
[2024-10-03 12:21] VITALS: BP 125/68; PULSE 91; RESP 18; TEMP 97.6; O2SAT 95
[2024-10-03] MEDS ORDERED: ONDANSETRON HCL 4 MG ORAL DISINTEGRATING TAB PO PRN (13:45)
[2024-10-03 13:57] VITALS: PULSE 77; RESP 18; O2SAT 96
== END 2024-10-03 15:39 | disposition home or self-care (01) | DRG 713 ==
LOC: ER 10:52 → ERHOLD 11:34 → MED/SURG3 13:59 → OBSVTOIN 09-28 09:27
PROVIDERS: ADMIT Internal Medicine; ATTEND Internal Medicine
PROC: BT141ZZ Fluoroscopy of Kidneys, Ureters and Bladder using Low Osmolar Contrast (ICD-10-PCS; 2024-09-29)
PROC: 0VB08ZZ Excision of Prostate, Via Natural or Artificial Opening Endoscopic (ICD-10-PCS; principal; 2024-09-29 16:27)
PROC: 0T7D8ZZ Dilation of Urethra, Via Natural or Artificial Opening Endoscopic (ICD-10-PCS; 2024-09-29 16:27)
DX: N40.1 Benign prostatic hyperplasia with lower urinary tract symptoms (principal); D62 Acute posthemorrhagic anemia; N02.9 Recurrent and persistent hematuria with unspecified morphologic changes; N13.8 Other obstructive and reflux uropathy; Z16.12 Extended spectrum beta lactamase (ESBL) resistance; N39.0 Urinary tract infection, site not specified; B95.2 Enterococcus as the cause of diseases classified elsewhere; B96.1 Klebsiella pneumoniae [K. pneumoniae] as the cause of diseases classified elsewhere; E11.51 Type 2 diabetes mellitus with diabetic peripheral angiopathy without gangrene; E11.40 Type 2 diabetes mellitus with diabetic neuropathy, unspecified; D64.9 Anemia, unspecified; E87.6 Hypokalemia; I10 Essential (primary) hypertension; I25.10 Atherosclerotic heart disease of native coronary artery without angina pectoris; E03.9 Hypothyroidism, unspecified; E78.5 Hyperlipidemia, unspecified; N35.919 Unspecified urethral stricture, male, unspecified site; M54.9 Dorsalgia, unspecified; M15.9 Polyosteoarthritis, unspecified; Z79.84 Long term (current) use of oral hypoglycemic drugs; Z79.890 Hormone replacement therapy; I25.2 Old myocardial infarction; Z95.5 Presence of coronary angioplasty implant and graft; Z87.440 Personal history of urinary (tract) infections; Z90.79 Acquired absence of other genital organ(s)
CPT/HCPCS: 36415; 51700; 74420; 80048; 80053; 81001; 82948; 83735; 85025; 87086; 87186; 88305; 94799; 99284; C1758; C1769; G0378; J0360; J0692; J0696; J2003; J2270; J2405; J3475; J7030

== ENCOUNTER 2024-11-20 14:16 | Emergency (ER) | payer MEDICARE ==
[~2024-11-20] VITALS: Ht 175.3 cm; Wt 80.3 kg
[~2024-11-20 14:16] MED LIST changes: +FARXIGA5 MG PO
[2024-11-20 14:42] VITALS: TEMP 98
[2024-11-20] MEDS: ACETAMINOPHEN 325 MG TAB PO ONE (16:24)
[2024-11-20] MEDS: TETANUS/DIPHTHERIA TOX ADULT 0.5 ML SYR IM ONE (16:25)
[2024-11-20] MEDS: LIDOCAINE HCL 1% LOCAL INJ 20 ML VIAL INJ ONE (16:25)
[2024-11-20] MEDS ORDERED: CEPHALEXIN500 MG PO (18:07)
[2024-11-20 18:11] VITALS: PULSE 91; RESP 16; O2SAT 100
== END 2024-11-20 18:30 | disposition home or self-care (01) ==
LOC: ER 15:01
DX: S01.112A Laceration without foreign body of left eyelid and periocular area, initial encounter (principal); S60.512A Abrasion of left hand, initial encounter; W18.39XA Other fall on same level, initial encounter; Y93.01 Activity, walking, marching and hiking; Y92.89 Other specified places as the place of occurrence of the external cause; I10 Essential (primary) hypertension; E11.9 Type 2 diabetes mellitus without complications; E03.9 Hypothyroidism, unspecified; E78.5 Hyperlipidemia, unspecified; M54.9 Dorsalgia, unspecified; G89.29 Other chronic pain; I25.2 Old myocardial infarction; Z95.5 Presence of coronary angioplasty implant and graft
CPT/HCPCS: 12011; 70450; 72125; 73030; 73060; 90471; 90714; 99284; J2003